=== PATIENT | male | born 1940 | race Caucasian/White ===

== ENCOUNTER 2019-10-15 12:14 | Outpatient (CLI) | payer MEDICARE, OTHER ==
[2019-10-16 12:55] LABS: SARS-CoV-2 MS2 Positive; SARS-CoV-2 N Gene Negative; SARS-CoV-2 S Gene Negative; SARS-CoV-2 orf1ab Negative
== END 2019-10-15 12:15 | disposition home or self-care (01) ==
LOC: LABSCS 12:14
PROVIDERS: ATTEND Internal Medicine
DX: Z01.812 Encounter for preprocedural laboratory examination (principal); Z11.59 Encounter for screening for other viral diseases
CPT/HCPCS: 87635; U0003

== ENCOUNTER 2020-02-09 09:57 | Outpatient (CLI) | payer MEDICARE ==
--- NOTE | 2020-02-09 13:31 | RAD ---
2 view chest: [02/09/2020] Comparison:None available HISTORY: Preoperative patient FINDINGS: There is no pneumothorax or pleural fluid. No focal consolidation or alveolar edema. Heart and mediastinal contours appear grossly unremarkable. IMPRESSION: No focal consolidation or alveolar edema.
[2020-02-09 14:10] LABS: #Monocytes 0.8 10x3/uL (0.0-1.1); #Neutrophils 4.2 10x3/uL (1.5-8.4); %Basophils 0.4 % (0.0-2.0); %Eosinophils 0.5 % (0.0-6.0); %Lymphocytes 8.6 % (18.0-47.0); %Neutrophils 74.8 % (40.0-75.0); Hemoglobin 9.4 g/dL (14.0-18.0); Mean Corpuscular HGB CONC 32.3 G/DL (32.0-36.0); Mean Corpuscular Hemoglobin 30.7 PG (27.0-33.0); Mean Corpuscular Volume 95.1 fl (80.0-100.0); Mean Platelet Volume 8.9 fl (7.4-10.4); Platelet Count 417 10x3/uL (130-400); RBC Distribution Width 21.4 % (11.5-14.5); Red Blood Cell (RBC) Count 3.06 10x6/uL (4.40-5.80); White Blood Cell (WBC) Count 5.6 10x3/uL (4.5-11.0)
[2020-02-09 14:30] LABS: Anion Gap 14 mmol/L (10-20); BUN (Urea Nitrogen) 13 mg/dL (8.4-25.7); Calc. Creatinine Clearance 0 mL/min (70-130); Calcium 8.9 mg/dL (7.8-10.44); Carbon Dioxide 26 mmol/L (23-31); Chloride 101 mmol/L (98-107); Estimated GFR-MDRD Greater than 90; Glucose 178 mg/dL (83-110); Potassium 4.4 mmol/L (3.5-5.1); Sodium 137 mmol/L (136-145)
--- NOTE | 2020-02-09 23:46 | EKG ---
Test Reason : PREOP Blood Pressure : / mmHG Vent. Rate : 083 BPM Atrial Rate : 083 BPM P-R Int : 152 ms QRS Dur : 086 ms QT Int : 386 ms P-R-T Axes : 064 -21 056 degrees QTc Int : 453 ms Normal sinus rhythm Normal ECG Confirmed by Mark Anthony KUO ([id number]) on 02/09/2020 11:46:47 PM Referred By: CHRISTIAN Confirmed By:Mark Anthony KUO
[2020-02-10 12:58] LABS: SARS-CoV-2 MS2 Positive; SARS-CoV-2 N Gene Negative; SARS-CoV-2 S Gene Negative; SARS-CoV-2 by NAA Not Detected (NotDetected); SARS-CoV-2 orf1ab Negative
== END 2020-02-09 09:58 | disposition home or self-care (01) ==
LOC: LABBT 09:57
PROVIDERS: ATTEND Specialist
DX: Z01.818 Encounter for other preprocedural examination (principal); C15.5 Malignant neoplasm of lower third of esophagus; Z20.828 Contact with and (suspected) exposure to other viral communicable diseases
CPT/HCPCS: 71045; 80048; 85025; 93005; U0003; 87635; 93010

== ENCOUNTER 2020-02-12 08:47 | Day surgery (SDC) | payer MEDICARE ==
--- NOTE | 2020-02-11 09:31 | HP ---
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 He has had a feeding jejunostomy placed in [place]. He has been discovered to have a solitary liver met and lymphadenopathy and probably not a candidate for surgical resection. He has completed radiation therapy three weeks ago. I have been asked to see him regarding placement of a MediPort. He has a positive lymphadenopathy on PET scan in November. He had a J-tube placed in December 2019 in [place] along with a left lobe liver biopsy, metastatic adenocarcinoma, and omental biopsy negative. ALLERGIES: NONE. SOCIAL HISTORY: Tobacco, none. Alcohol, none. MEDICATIONS: None routinely. PAST SURGICAL/MEDICAL HISTORY: Noncontributory except for his feeding tube, left hand surgery after an injury, laparoscopy and biopsy, solitary liver mass. REVIEW OF SYSTEMS: Ten-point noncontributory. FAMILY HISTORY: Negative. PHYSICAL EXAMINATION: VITAL SIGNS: 198 pounds, 72 inches, and 28 BMI. 93/66, 72, and 97.6 degrees. HEAD, EARS, EYES, NOSE, AND THROAT: Unremarkable. LUNGS: Clear to auscultation. CARDIAC: Regular rate and rhythm without murmur or gallop. ABDOMEN: Soft and nontender. Feeding tube, left abdomen. EXTREMITIES: Unremarkable. 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 PLAN: Placement of low-profile MediPort, left chest. He understands risks and benefits, consents. Job ID: [id number]
[2020-02-11 13:38] VITALS: BMI 27.1
[2020-02-12] MEDS ORDERED: Acetaminophen 500 MG TAB ONE (09:13)
[2020-02-12] MEDS ORDERED: Ketorolac Tromethamine 30 MG/ML VIAL ONE (09:13)
[2020-02-12] MEDS ORDERED: Fentanyl 100 MCG/2 ML VIAL ONE (10:26)
[2020-02-12] MEDS ORDERED: PROPOFOL 40 ML ONE (10:26)
[2020-02-12] MEDS ORDERED: Midazolam HCl 2 mg/2 ml Vial ONE (10:26)
[2020-02-12] MEDS ORDERED: Lidocaine 2% w/Epinephrine 1:200K 20 ML VIAL ONE (10:27)
[2020-02-12] MEDS ORDERED: Bupivacaine PF 0.5% 30 ML VIAL ONE (10:27)
--- NOTE | 2020-02-12 11:48 | OP ---
DATE OF PROCEDURE: 02/12/2020 PREOPERATIVE DIAGNOSIS: Esophageal cancer, in need of antineoplastic chemotherapy access. POSTOPERATIVE DIAGNOSIS: Esophageal cancer, in need of antineoplastic chemotherapy access. PROCEDURES PERFORMED: Right subclavian vein MediPort, PowerPort, low-profile. Digital x-ray used (fluoroscopy unavailable). ANESTHESIA: TIVA, local 0.25% Marcaine 30 mL mixed with 1% Xylocaine with epinephrine 20 mL. DESCRIPTION OF PROCEDURE: The patient was taken to the operating room, where under intravenous sedation, neck and chest prepared with ChloraPrep and draped in routine fashion. Local anesthetic infiltrated in the skin and subcutaneous tissue about the operative site. Trocar catheter with infraclavicular subclavian approach cannulated, threading the J-wire, removing the trocar, making a skin incision, creating a subcutaneous pocket with blunt and sharp dissection, using cautery for hemostasis. Dilator and Peel-Away sheath placed with J-wire in superior vena cava, dilator and J-wire were removed, catheter placed with Peel-Away sheath. Peel-Away sheath removed. Catheter placed in optimal position, tip in the superior vena cava, verified by digital x-ray. Catheter tailored to length, connected to the MediPort, placed in subcutaneous pocket, secured with 2 interrupted suture of 3-0 Prolene. Subcutaneous tissue was approximated with 3-0 Monocryl, skin with subdermal 4-0 Monocryl. MediPort accessed with a Arguelles needle, aspirated blood, flushed with heparinized saline solution. [place] glue applied. Final digital chest x-ray revealed good line placement. Job ID: [id number]
--- NOTE | 2020-02-12 13:08 | RAD ---
PORTABLE CHEST: Date: 02/12/2020 INDICATION: MediPort placement. COMPARISON: 02/09/2020. FINDINGS/IMPRESSION: A MediPort type catheter has been placed via the right subclavian vein. This line overlies the SVC an d appears in adequate position. Lungs remain clear and unchanged. No acute interval change noted. POS: AH
== END 2020-02-12 11:45 | disposition home or self-care (01) ==
LOC: SDC 08:47
PROVIDERS: ATTEND Specialist
PROC: 0JH60WZ Insertion of Totally Implantable Vascular Access Device into Chest Subcutaneous Tissue and Fascia, Open Approach (ICD-10-PCS; principal; 2020-02-12)
PROC: 02HV33Z Insertion of Infusion Device into Superior Vena Cava, Percutaneous Approach (ICD-10-PCS; 2020-02-12)
PROC: B518ZZA Fluoroscopy of Superior Vena Cava, Guidance (ICD-10-PCS; 2020-02-12)
DX: C15.5 Malignant neoplasm of lower third of esophagus (principal); C78.7 Secondary malignant neoplasm of liver and intrahepatic bile duct; Z79.82 Long term (current) use of aspirin; Z79.84 Long term (current) use of oral hypoglycemic drugs; Z79.899 Other long term (current) drug therapy
CPT/HCPCS: 36561; 71045; C1788; J0690; J1642; J1885; J2250; J2704; J3010; S0020

== ENCOUNTER 2020-03-22 08:08 | Outpatient (CLI) | payer MEDICARE ==
--- NOTE | 2020-03-22 10:49 | PET ---
EXAM: PET/CT HISTORY: Malignant neoplasm of the lower one third of the esophagus TECHNIQUE: PET scanning with CT attenuation correction was performed from the base of the brain to the proximal thighs following the intravenous administration of 12.1 millicuries [id number]. COMPARISON: Prior CT the chest, abdomen and pelvis dated November 17, 2019 and a PET/CT dated November. FINDINGS: Biodistribution:The biodistribution for the exam appears acceptable. Head and neck: There is appropriate background activity within the brain. No hypermetabolic lymphaden opathy or masses identified. Thorax: The prominent circumferential hypermetabolic activity involving the distal one third esophage al mass is near completely resolved. The peak SUV activity involving the distal esophagus is 3.1 were previously it was 11.4. Mild residual thickening is seen involving the distal esophagus. No hyp ermetabolic paraesophageal lymphadenopathy is noted. Abdomen and pelvis: There is expected background activity within the GI and systems. No hypermetab olic mass, lymphadenopathy or ascites is present. No hypermetabolic lymphadenopathy is evident within the paraesophageal or gastrohepatic region previously seen. No hypermetabolic activity is seen involving the small exophytic hyperdense lesion off the anterior aspect of the lower pole of the left kidney. There is a focus of narrowing and hypermetabolic activity involving the hepatic flexure of the colon likely related to peristalsis with superimposed background GI activity measuring a peak activity of 7.39. This was not demonstrated on the prior PET/CT normal comparison CT evaluation is likely artifactual in nature. No hypermetabolic ascites is present. There is a percutaneous jejunostomy tube in place. There is prostate enlargement. Osseous structures and skin: No hypermetabolic skin or osseous lesion is identified. There are bilate ral pars defects at L5 with grade 1 anterolisthesis. IMPRESSION: Abnormal PET/CT 1. The prominent circumferential hypermetabolic soft tissue mass involving the distal one third of th e esophagus is near completely resolved. Mild residual thickening is seen remaining the distal one third of the esophagus. There is only mild hypermetabolic activity involving the distal one third eso phagus. No hypermetabolic lymphadenopathy is evident within the paraesophageal region or within the upper abdomen as previously seen. Continued PET CT follow-up is recommended. 2. Focal area of narrowing involving the hepatic flexure the colon with associated increased metaboli c activity is likely related to an area of peristalsis with the accentuated GI background activity. Would confirm appropriate colon screening in the patient's history as a conservative measure. 3. The indeterminate exophytic hyperdense lesion off the anterior aspect of the lower pole of the lef t kidney remains unchanged in CT appearance without associated hypermetabolic activity. Follow-up ultrasound may be helpful for improved characterization.
== END 2020-03-22 08:09 | disposition home or self-care (01) ==
LOC: PET 08:08
PROVIDERS: ATTEND Internal Medicine Hematology & Oncology
DX: C15.9 Malignant neoplasm of esophagus, unspecified (principal); N28.9 Disorder of kidney and ureter, unspecified
CPT/HCPCS: 78815; A9552

== ENCOUNTER 2020-04-22 08:20 | Day surgery (SDC) | payer MEDICARE ==
[2020-04-22] MEDS ORDERED: Sodium Chloride 0.9% 20 ML ONE (09:19)
[2020-04-22] MEDS ORDERED: Acetaminophen 500 MG TAB PO SCH (09:30)
[2020-04-22] MEDS ORDERED: diphenhydrAMINE 25 MG CAP PO SCH (09:30)
[2020-04-22 14:53] VITALS: BP 135/65; TEMP 97.9
== END 2020-04-22 14:54 | disposition home or self-care (01) ==
LOC: ONC/OP 08:20
PROVIDERS: ATTEND Internal Medicine Hematology & Oncology
PROC: 30233N1 Transfusion of Nonautologous Red Blood Cells into Peripheral Vein, Percutaneous Approach (ICD-10-PCS; principal; 2020-04-22)
DX: D64.9 Anemia, unspecified (principal); D69.6 Thrombocytopenia, unspecified
CPT/HCPCS: 36430; 86850; 86900; 86901; J1642; P9016; Q0163

== ENCOUNTER 2020-04-26 18:46 | Inpatient (IN) | payer MEDICARE ==
[2020-04-26 21:44] VITALS: BMI 24.0
[2020-04-27] MEDS ORDERED: Morphine 2 MG/ML VIAL SLOW IVP SCH (00:45)
[2020-04-27] MEDS ORDERED: Prochlorperazine Maleate 5 MG TAB PO PRN (01:21)
[2020-04-27] MEDS ORDERED: Ondansetron ODT 8 MG TAB PO PRN (01:21)
[2020-04-27] MEDS ORDERED: Acetaminophen 325 MG TAB PO PRN (01:54)
[2020-04-27] MEDS ORDERED: Dextrose 5% in Water 1,000 ML IV PRN (02:00)
[2020-04-27] MEDS ORDERED: Dextrose 50% Abboject 50 ML SYRINGE SLOW IVP PRN (02:00)
[2020-04-27] MEDS ORDERED: HumaLOG 300 UNITS/3 ML VIAL SC PRN ×2 (02:00)
--- NOTE | 2020-04-27 02:07 | PDOC.HHP ---
Hospitalist HPI - History of Present Illness Fall, J tube expulsion History of Present Illness: PCP; Dr. Winchester The patient is a 79/M with PMH significant for esophageal and liver cancer s/p J-tube placement (on chemo) followed by Dr. Vega, [facility], [facility] that presents to the hospital as a transfer from [facility] emergency department via EMS for the above compliant. Apparently, the patient suffered a mechanical fall with subsequent expulsion of his feeding tube. He denies hitting his head or loss of consciousness. He has had his feeding tube replaced multiple times in the past. Also, the patient reports having progressive generalized weakness over the past several days. He denies any abdominal pain, nausea, vomiting, diarrhea. He denies any known sick contacts. No known Covid contacts. No loss of smell or taste. He is currently being treated with chemotherapy by Dr. Vega and recently received a dose of Neulasta. He denies fever, however, he endorses chills. He endorses nonproductive cough, however, denies shortness of breath and wheezing. He was found to have leukocytosis, UTI and mild hypokalemia. He was transferred to our hospital for further treatment. ED Course: T 97.6, BP 96/60, HR 77, RR 18, SPO2 97% room air CXR no acute process X-ray abdomen feeding tube check, tube in place. LA 1.7, WBCs 27.9 K3.0 Medications: Vancomycin and cefepime IVPB 1 L normal saline 40 M EQ's of potassium Morphine and Zofran Hospitalist ROS - Review of Systems Constitutional: reports: chills. denies: fever Eyes: denies: pain Respiratory: reports: cough (Nonproductive). denies: shortness of breath, hemoptysis, sputum Cardiovascular: denies: chest pain, palpitations, edema, light headedness Gastrointestinal: denies: nausea, vomiting, abdominal pain, diarrhea, constipation, melena, hematochezia Genitourinary: denies: dysuria, hematuria All other systems reviewed; all pertinent +/- noted in HPI/Subj - Medication Medications: Active Medications Generic Name Dose Route Start Last Admin Trade Name Freq PRN Reason Stop Dose Admin Morphine Sulfate 2 mg 04/27/20 00:45 04/27/20 00:40 Morphine 2 Mg/Ml Vial SLOW IVP 04/27/20 02:45 2 mg NOW MARTIN Administration Hospitalist History - Past Medical History Cardiac: reports: HTN, Hyperlipidemia Gastrointestinal: reports: GERD Heme/Onc: reports: Cancer (Esophageal and liver cancer) Renal/: reports: Benign prostatic enlarg. Endocrine: reports: Diabetes (Type II) - Past Surgical History Past Surgical History: reports: Other (J-tube replacement) - Family History Other Family History: Noncontributory to this case - Social History Smoking Status: Never smoker Alcohol: reports: None Drugs: reports: none Living Situation: With Family Occupation: Retired Activity level: uses cane/walker - Exam General Appearance: NAD, awake alert. negative: ill appearing Eye: anicteric sclera ENT: normocephalic atraumatic, moist mucosa Neck: supple, no lymphadenopathy Heart: RRR, no murmur, no gallops, no rubs, normal peripheral pulses Respiratory: CTAB, no wheezes, no rales, no ronchi, normal chest expansion, no tachypnea Gastrointestinal: soft, non-tender, non-distended, normal bowel sounds, no guarding, no rigidity Gastrointestinal - other findings: [address] Extremities: no edema Skin: no rashes Neurological: cranial nerve grossly intact, no focal deficits Psychiatric: normal affect, A&O x 3 Hospitalist Results - Radiology Interpretation Chest x-ray Status: report reviewed by me Additional Comment: No acute process. Hospitalist H&P A/P - Problem (1) UTI (urinary tract infection) Status: Acute (2) Leukocytosis Code(s): D72.829 - ELEVATED WHITE BLOOD CELL COUNT, UNSPECIFIED Status: Acute (3) Encounter for feeding tube placement Code(s): Z46.59 - ENCOUNTER FOR FIT/ADJST OF GI APPLIANCE AND DEVICE Status: Acute (4) Hypokalemia Code(s): E87.6 - HYPOKALEMIA Status: Acute (5) Esophageal cancer Status: Chronic (6) DM2 (diabetes mellitus, type 2) Status: Chronic (7) HTN (hypertension) Code(s): I10 - ESSENTIAL (PRIMARY) HYPERTENSION Status: Chronic (8) HLD (hyperlipidemia) Code(s): E78.5 - HYPERLIPIDEMIA, UNSPECIFIED Status: Chronic (9) BPH (benign prostatic hyperplasia) Code(s): N40.0 - BENIGN PROSTATIC HYPERPLASIA WITHOUT LOWER URINRY TRACT SYMP Status: Chronic (10) GERD (gastroesophageal reflux disease) Code(s): K21.9 - GASTRO-ESOPHAGEAL REFLUX DISEASE WITHOUT ESOPHAGITIS Status: Chronic - Plan Plan: Patient with esophageal liver cancer status post J-tube placement presents for mechanical fall and expulsion of J-tube. #UTI UA 1+ bacteria, WBCs, leukocyte esterase WBCs 27.9, LA 1.7 Given vancomycin and cefepime Blood/urine cultures pending #Leukocytosis Potentially multifactorial. WBCs 27.9 Status post Neulasta administration. Plan as per #1. #Encounter for feeding tube placement J-tube replaced with 12 [place] Olson catheter in [facility] ER. Abdominal x-ray confirmed placement was good. Consult GI for PEG tube placement. #Hypokalemia mild, presented K 3.0 Replaced 40 mEQ in [facility] ER Will check Mag and recheck BMP in am #DM2 Takes metformin. Hold metformin. Start moderate ISS. Accu-Cheks every 6. #Esophageal and liver cancer Followed by Dr. Vega. Currently chemotherapy. Status post Neulasta administration. Consult Dr. Vega. SCDs for DVT prophylaxis. No pharmacological DVT prophylaxis. Pepcid for GI prophylaxis. Consult PT. CODE STATUS is full code. Discussed the case with Dr. Magaña, attending physician, who agrees with plan of care.
[2020-04-27] MEDS ORDERED: Vancomycin HCl 1.25 GM in Sodium Chloride 0.9% 250 ML 250 ML IVPB SCH (06:00)
[2020-04-27 06:19] LABS: Anion Gap 12 mmol/L (10-20); BUN (Urea Nitrogen) 11 mg/dL (8.4-25.7); Calc. Creatinine Clearance 103 mL/min (70-130); Calcium 8.6 mg/dL (7.8-10.44); Carbon Dioxide 28 mmol/L (23-31); Chloride 109 mmol/L (98-107); Glucose 94 mg/dL (83-110); Magnesium 1.9 mg/dL (1.6-2.6); Potassium 3.1 mmol/L (3.5-5.1); Sodium 146 mmol/L (136-145)
[2020-04-27 06:31] LABS: Hemoglobin 10.5 g/dL (14.0-18.0); Mean Corpuscular HGB CONC 33.1 g/dL (32.0-36.0); Mean Corpuscular Hemoglobin 32.2 pg (27.0-31.0); Mean Corpuscular Volume 97.4 fL (78.0-98.0); Mean Platelet Volume 8.6 fL (7.4-10.4); Platelet Count 90 thou/uL (130-400); RBC Distribution Width 19.9 % (11.5-14.5); Red Blood Cell (RBC) Count 3.25 mill/uL (4.70-6.10); White Blood Cell (WBC) Count 18.9 thou/uL (4.8-10.8)
[2020-04-27 08:05] LABS: #Lymphocytes 0.8 thou/uL (1.20-3.40); #Monocytes 1.2 thou/uL (0.11-0.59); #Neutrophils 16.9 thou/uL (1.40-6.50); %Eosinophils 0.2 % (0.0-10.0); %Lymphocytes 4.3 % (21.0-51.0); %Monocytes 6.1 % (0.0-10.0); %Neutrophils 89.4 % (42.0-75.0); Anisocytosis MODERATE=16-30 cells (100X) (0-5/hpf); Band 23 % (5-11); Lymphocytes 1 % (21-51); MDiff Complete? YES; Monocytes 6 % (0-10); Neutrophil 69 % (42-75); Platelet Morphology Comment Appears Decreased; Polychromasia SLIGHT = 2-3 cells (100X) (0-2/hpf); Toxic Granulation SLIGHT
[2020-04-27] MEDS ORDERED: LACTOBACILLUS RHAMNOSUS GG PO SCH (09:00)
[2020-04-27] MEDS: Cefepime 1 GM in Sodium Chloride 0.9% 100 ML IVPB SCH ×2 (09:03→20:46)
[2020-04-27] MEDS: Finasteride 5 MG TAB PO SCH (09:07)
[2020-04-27] MEDS: Potassium Bicarbonate/Cit Ac 20 MEQ TAB PO SCH ×2 (09:07→16:28)
[2020-04-27] MEDS: Aspirin 81 mg Enteric Coated Tablet PO SCH (09:07)
[2020-04-27] MEDS: Losartan 25 MG TAB PO SCH (09:08)
[2020-04-27] MEDS ORDERED: Potassium Chloride 20 MEQ TAB PO SCH (10:30)
[2020-04-27] MEDS ORDERED: Potassium Chloride 20 MEQ in Premix Bag 1 BAG IVPB SCH (11:15)
--- NOTE | 2020-04-27 12:46 | CON ---
DATE OF CONSULTATION: 04/27/2020 REASON FOR CONSULTATION: J-tube came out. HISTORY OF PRESENT ILLNESS: Jona Ramos is a 79-year-old man who has been seen by my partner, Dr. Harsh Mancilla. He evaluated him in October for a couple of months of progressive dysphagia to solids. Unfortunately, on 11/05/2019, EGD showed a large near-obstructing bleeding and esophageal mass from 35 to 42 cm. Biopsies came back confirming adenocarcinoma. The patient has been receiving oncology care under the direction of Dr. Vega as well as some physicians at [facility] in [place]. He ended up undergoing a jejunostomy tube placement for feedings in 12/2019. He had been undergoing neoadjuvant chemotherapy and radiation with plan for curative resection, but it appears that he developed evidence of metastatic disease to the liver. At this point, he continues on chemotherapy. He has had some issues with the J-tube being dislodged accidentally over the past few months, but this has always been replaced in the ER. At this time again, he had an accidental fall at home and afterward he found his J-tube was not working, then it came out last night. Upon presentation here to the emergency department, he was found to have a leukocytosis with WBC 27.9 and urinalysis suggesting urinary tract infection. He was admitted for treatment of this as well as overall generalized weakness. He is now getting vancomycin and cefepime. He is feeling okay. A 12-Niue[place] Olson catheter was placed at the jejunostomy site to keep it open. My partner, Dr. Mancilla, had been called from the ER, was unaware the patient was going to be admitted, had actually arranged for him to be seen by Interventional Radiology for replacement of jejunostomy tube later this week. We are consulted to address this issue now. REVIEW OF SYSTEMS: Full review of systems including constitutional; head, eyes, ears, nose, and throat; GI; ; cardiovascular; respiratory; musculoskeletal; neurologic systems is negative except as noted in the HPI. PAST MEDICAL HISTORY: 1. BPH. 2. Diabetes. 3. Hypertension. 4. Hiatal hernia. 5. Esophageal adenocarcinoma, diagnosed in 10/2019, metastatic to liver. 6. Jejunostomy tube placement in 12/2019. ALLERGIES: NO KNOWN DRUG ALLERGIES. HOME MEDICATIONS: 1. Metformin. 2. Flomax. 3. Compazine. 4. Pantoprazole 40 mg daily. 5. Zofran p.r.n. 6. Losartan. 7. Finasteride. 8. Aspirin 81 mg daily. 9. Amitriptyline 25 mg nightly. SOCIAL HISTORY: No tobacco or alcohol use. FAMILY HISTORY: Noncontributory. PHYSICAL EXAMINATION: VITAL SIGNS: Temperature 97.8, pulse 63, blood pressure 124/74, and 95% oxygen saturation on room air. GENERAL: A 79-year-old man appearing chronically ill, but nontoxic, lying in bed comfortably, in no distress. SKIN: He is a bit pale. No jaundice. No rash visible or palpable. EYES: No scleral icterus. Extraocular movements intact. ENT: Mucous membranes moist. No oral lesions. LYMPHATICS: No submandibular or supraclavicular lymphadenopathy. THYROID: Nontender to palpation. HEART: Regular rate and rhythm. LUNGS: Clear to auscultation bilaterally. ABDOMEN: Nondistended. Bowel sounds are present. Left-sided jejunostomy site was inspected. There was a 12-Niuean Olson catheter in place at this time. There is some surrounding mild erythema. No significant discharge or bleeding from this site. EXTREMITIES: No peripheral edema. VESSELS: Radial pulses 2+ bilaterally. NEUROLOGIC: Cranial nerves 2 through 12 intact bilaterally. No focal deficits. LABORATORY STUDIES: WBC 18.9, hemoglobin 10.5, and platelets 90. Sodium 146, potassium 3.1, BUN 11, creatinine 0.67, and glucose 94. ASSESSMENT AND PLAN: 1. Dislodged jejunostomy tube. 2. Esophageal adenocarcinoma, metastatic to the liver, undergoing chemotherapy. I think that given the location of his malignancy that jejunostomy feedings are preferred to gastric feedings going forward. This being the case, there is no role for endoscopy at this time. He does need his jejunostomy tube to be replaced, and this would best be performed through Interventional Radiology. Since the patient is admitted, we will go ahead and obtain inpatient interventional radiology consultation for consideration of jejunostomy tube replacement. 3. Urinary tract infection. Treatment per the primary service. Job ID: [id number]
--- NOTE | 2020-04-27 16:26 | PDOC.HOSPP ---
- Subjective Encounter Date: 04/27/20 Encounter Time: 12:10 Subjective: In bed denies any complaints - Objective Vital Signs & Weight: Vital Signs (12 hours) Temp Pulse Resp BP Pulse Ox 04/27/20 12:00 98.0 F 63 14 135/75 96 04/27/20 11:36 95 04/27/20 08:00 97.8 F 63 18 124/74 95 Weight Admit Weight 177 lb Weight 177 lb I&O: 04/26/20 04/27/20 04/28/20 06:59 06:59 06:59 Output Total 2450 Balance -2450 Result Diagrams: 04/27/20 05:35 04/27/20 05:35 Additional Labs: Accuchecks 04/27/20 04/27/20 11:45 05:25 POC Glucose 85 91 Hospitalist ROS - Review of Systems Cardiovascular: denies: chest pain, palpitations, orthopnea, paroxysmal noc. dyspnea, edema, light headedness, other Gastrointestinal: denies: nausea, vomiting, abdominal pain, diarrhea, constipation, melena, hematochezia, other Genitourinary: denies: dysuria, frequency, incontinence, hematuria, retention, other - Medication Medications: Active Medications Generic Name Dose Route Start Last Admin Trade Name Freq PRN Reason Stop Dose Admin Aspirin 81 mg 04/27/20 09:00 04/27/20 09:07 Aspirin 81 Mg Enteric Coated Tablet PO Not Given DAILY [facility] Finasteride 5 mg 04/27/20 09:00 04/27/20 09:07 Finasteride 5 Mg Tab PO Not Given DAILY [facility] Cefepime HCl 1 gm/ Sodium 100 mls @ 200 mls/hr 04/27/20 08:00 04/27/20 09:03 Chloride IVPB 100 mls 08,1999 [facility] Administration Losartan Potassium 50 mg 04/27/20 09:00 04/27/20 09:08 Losartan 25 Mg Tab PO Not Given DAILY [facility] Pantoprazole Sodium 40 mg 04/27/20 09:00 04/27/20 09:08 Pantoprazole 40 Mg Tab PO Not Given DAILY [facility] Potassium Bicarbonate/Citric Acid 20 meq 04/27/20 08:00 04/27/20 09:07 Potassium Bicarbonate/Cit Ac 20 Meq Tab PO Not Given [facility] - Exam Neck: negative: supple, symmetric, no JVD, no thyromegaly, no lymphadenopathy, no carotid bruit, JVD Heart: negative: RRR, no murmur, no gallops, no rubs, normal peripheral pulses, irregular, diminshed peripheral pulses, murmur present, II/IV, III/IV Respiratory: negative: CTAB, no wheezes, no rales, no ronchi, normal chest expansion, no tachypnea, normal percussion, rales, rhonchi, tachypneic, wheezes Gastrointestinal: negative: soft, non-tender, non-distended, normal bowel sounds, no palpable masses, no hepatomegaly, no splenomegaly, no bruit, no guarding, no rigidity, tender to palpation, distended, diminished bowl sounds, voluntary guarding Hosp A/P - Plan 1) UTI (urinary tract infection) Status: Acute (2) Leukocytosis Code(s): D72.829 - ELEVATED WHITE BLOOD CELL COUNT, UNSPECIFIED Status: Acute (3) Encounter for feeding tube placement Code(s): Z46.59 - ENCOUNTER FOR FIT/ADJST OF GI APPLIANCE AND DEVICE Status: Acute (4) Hypokalemia Code(s): E87.6 - HYPOKALEMIA Status: Acute (5) Esophageal cancer Status: Chronic (6) DM2 (diabetes mellitus, type 2) Status: Chronic (7) HTN (hypertension) Code(s): I10 - ESSENTIAL (PRIMARY) HYPERTENSION Status: Chronic (8) HLD (hyperlipidemia) Code(s): E78.5 - HYPERLIPIDEMIA, UNSPECIFIED Status: Chronic (9) BPH (benign prostatic hyperplasia) Code(s): N40.0 - BENIGN PROSTATIC HYPERPLASIA WITHOUT LOWER URINRY TRACT SYMP Status: Chronic (10) GERD (gastroesophageal reflux disease) Code(s): K21.9 - GASTRO-ESOPHAGEAL REFLUX DISEASE WITHOUT ESOPHAGITIS Status: Chronic - Plan Plan: Patient with esophageal liver cancer status post J-tube placement presents for mechanical fall and expulsion of J-tube. We will continue antibiotics for UTI. Culture has been sent. Patient has a Olson catheter which was placed in the ER due to urinary retention. Patient states that he follows up with urology as an outpatient and in the past has had catheter in for couple weeks. Patient states that he does not want his catheter to be removed at this point. I believe his leukocytosis is most likely se condary to the Neulasta. I will stop the vancomycin and cefepime and start him on ceftriaxone. GI will see him for his PEG tube. Patient has been evaluated by physical therapy. He usually uses a cane at home however he may need a walker. Follows up with oncology for chemotherapy
--- NOTE | 2020-04-27 18:54 | CON ---
DATE OF CONSULTATION: REASON FOR CONSULT: Esophageal cancer. HISTORY OF PRESENT ILLNESS: Mr. Ramos is a 79-year-old gentleman who had stage IV esophageal adenocarcinoma. He underwent concurrent chemoradiation, was to have surgery, but then found metastatic liver lesion. He has been on FOLFOX chemotherapy. He has had a J-tube in place. He has had trouble with the J-tube over last several weeks with dislodgement and gone to the ER for replacement. He was seen on Saturday in our clinic and received cycle 6 of FOLFOX. His white count at that time was 18. It has been slightly elevated over the last several cycles with the last one being 12.8. He presented to the emergency room last night after accidental J-tube displacement. He was noted to have a urinary tract infection. He was admitted for treatment and new J-tube placement. He has been on antibiotics and received IV potassium. He was seen at bedside with his son present. Denies any complaints at this time. PAST MEDICAL HISTORY: 1. Metastatic esophageal adenocarcinoma, on chemotherapy. 2. Diabetes mellitus 2. PAST SURGICAL HISTORY: 1. MediPort placement. 2. J-tube placement. ALLERGIES: NO KNOWN DRUG ALLERGIES. HOME MEDICATIONS: 1. Aspirin. 2. Compazine. 3. Losartan. 4. Metformin. 5. Zofran. 6. Protonix. 7. Flomax. FAMILY HISTORY: Noncontributory. SOCIAL HISTORY: , has 2 children. Former smoker. No alcohol or illicit drug use. REVIEW OF SYSTEMS: 12-point review of systems is negative except for noted in HPI. PHYSICAL EXAMINATION: VITAL SIGNS: Temperature 98.0, pulse is 63, respiratory rate 14, blood pressure is 135/75. He is 96% on room air. GENERAL: Well-developed, well-nourished male, in no acute distress. HEENT: Normocephalic, atraumatic. Pupils are equal and reactive to light. CV: Regular rate and rhythm. LUNGS: Clear. ABDOMEN: Soft. Bowel sounds are positive. EXTREMITIES: No clubbing or cyanosis. SKIN: No rash. HEMATOLOGICAL: No petechiae or purpura. NEUROLOGICAL: Nonfocal. PERTINENT LABORATORY DATA AND X-RAYS: WBCs are 18.9, hemoglobin 10.5, hematocrit 31.6, platelet count is 90,000, 89% neutrophils, 23% bands, 4% lymphocytes. Sodium 146, potassium 3.1, chloride 109, CO2 is 28, BUN is 11, creatinine 0.67, calcium 8.6, bilirubin 1.1, AST is 115, ALT 68, alkaline phosphatase is 143. Serum total protein is 5.6, albumin 3, globulin 2.6. Urine shows 1+ bacteria. ASSESSMENT: 1. Metastatic esophageal cancer, on chemotherapy. 2. J-tube displacement. 3. Urinary tract infection. DISCUSSION: The patient has been admitted and on IV hydration and antibiotics. His potassium has been repleted. He was on 48-hour continuous infusion, which has been discontinued. His MediPort has been flushed, but remains accessed. He is due for Cervalis tomorrow. His white count has been mildly elevated over the last several weeks, possibly made worse with steroids received with treatment and secondary to urinary tract infection. The patient is to have his J-tube replaced tomorrow and then can be discharged when okay with [facility]. He will follow up in our clinic. Thank you for the consult. Job ID: [id number]
[2020-04-27] MEDS ORDERED: Vancomycin 1 GM in Premix Bag 1 BAG IVPB SCH (19:00)
[2020-04-27] MEDS ORDERED: Amitriptyline HCl 25 MG TAB PO SCH (21:00)
[2020-04-27] MEDS ORDERED: Tamsulosin HCl 0.4 MG CAP PO SCH (21:00)
[2020-04-28 05:37] LABS: INR-International Normal Ratio 1.2; PTT 30.3 sec (22.9-36.1); Prothrombin Time 15.4 sec (12.0-14.7)
[2020-04-28] MEDS: Potassium Bicarbonate/Cit Ac 20 MEQ TAB PO SCH ×2 (08:06→17:18)
[2020-04-28] MEDS: Finasteride 5 MG TAB PO SCH (08:06)
[2020-04-28] MEDS: Losartan 25 MG TAB PO SCH (08:06)
[2020-04-28] MEDS: Lactinex Tablet PO SCH (08:06)
[2020-04-28] MEDS: Aspirin 81 mg Enteric Coated Tablet PO SCH (08:06)
[2020-04-28] MEDS: Amitriptyline HCl 25 MG TAB PO SCH (08:06)
[2020-04-28] MEDS: Tamsulosin HCl 0.4 MG CAP PO SCH (08:07)
[2020-04-28 08:45] LABS: SARS-CoV-2 PCR by NAA Not Detected (NotDetected)
[2020-04-28] MEDS: Cefepime 1 GM in Sodium Chloride 0.9% 100 ML IVPB SCH ×2 (09:52→20:58)
--- NOTE | 2020-04-28 12:38 | PDOC.HOSPP ---
- Subjective Encounter Date: 04/28/20 Subjective: No new events overnight. The patient is confused. - Objective Vital Signs & Weight: Vital Signs (12 hours) Temp Pulse Resp BP Pulse Ox 04/28/20 10:40 97.5 F L 71 16 128/73 96 04/28/20 07:07 97.5 F L 56 L 16 122/63 97 04/28/20 03:46 97.5 F L 60 14 133/68 97 Weight Admit Weight 177 lb Weight 177 lb I&O: 04/27/20 04/28/20 04/29/20 06:59 06:59 06:59 Intake Total 1280 Output Total 2450 1800 Balance -2450 -520 Result Diagrams: 04/27/20 05:35 04/27/20 05:35 Additional Labs: Accuchecks 04/28/20 04/28/20 04/27/20 10:42 05:48 23:58 POC Glucose 92 97 106 H 04/27/20 18:16 POC Glucose 107 H Hospitalist ROS - Medication Medications: Active Medications Generic Name Dose Route Start Last Admin Trade Name Freq PRN Reason Stop Dose Admin Acidophilus 1 tab 04/28/20 09:00 04/28/20 08:06 Lactinex Tablet PO Not Given DAILY MARTIN Amitriptyline HCl 25 mg 04/28/20 09:00 04/28/20 08:06 Amitriptyline Hcl 25 Mg Tab PO Not Given QAM MARTIN Aspirin 81 mg 04/27/20 09:00 04/28/20 08:06 Aspirin 81 Mg Enteric Coated Tablet PO Not Given DAILY MARTIN Finasteride 5 mg 04/27/20 09:00 04/28/20 08:06 Finasteride 5 Mg Tab PO Not Given DAILY MARTIN Cefepime HCl 1 gm/ Sodium 100 mls @ 200 mls/hr 04/27/20 08:00 04/28/20 09:52 Chloride IVPB 100 mls MARTIN Administration Losartan Potassium 50 mg 04/27/20 09:00 04/28/20 08:06 Losartan 25 Mg Tab PO Not Given DAILY MARTIN Pantoprazole Sodium 40 mg 04/27/20 09:00 04/28/20 08:07 Pantoprazole 40 Mg Tab PO Not Given DAILY MARTIN Potassium Bicarbonate/Citric Acid 20 meq 04/27/20 08:00 04/28/20 08:06 Potassium Bicarbonate/Cit Ac 20 Meq Tab PO Not Given BID-WM MARTIN Tamsulosin HCl 0.8 mg 04/28/20 09:00 04/28/20 08:07 Tamsulosin Hcl 0.4 Mg Cap PO Not Given QAM MARTIN - Exam ENT: normocephalic atraumatic Neck: supple, no JVD Respiratory: normal chest expansion, no tachypnea Extremities: no cyanosis, no clubbing Hosp A/P (1) Sepsis Code(s): A41.9 - SEPSIS, UNSPECIFIED ORGANISM Status: Acute (2) Encounter for feeding tube placement Code(s): Z46.59 - ENCOUNTER FOR FIT/ADJST OF GI APPLIANCE AND DEVICE Status: Acute (3) UTI (urinary tract infection) Status: Acute (4) BPH (benign prostatic hyperplasia) Code(s): N40.0 - BENIGN PROSTATIC HYPERPLASIA WITHOUT LOWER URINRY TRACT SYMP Status: Chronic (5) DM2 (diabetes mellitus, type 2) Status: Chronic (6) Esophageal cancer Status: Chronic - Plan Sepsis secondary to complicated UTI. The patient has a chronic Olson catheter. Urine culture is pending. Continue IV cefepime. Repeat CBC in the morning. J-tube will be replaced today.
--- NOTE | 2020-04-28 13:35 | SPC ---
Jejunostomy tube change fluoroscopic guided HISTORY: Jejunostomy feeding tube inadvertently removed. FINDINGS: The external portion of the temporary Olson catheter that was used to replace the left abdo russell jejunostomy feeding catheter was prepped and draped in usual sterile fashion. Small amount of contrast was injected to confirm good location. A 0.035 Glidewire was carefully passed through the catheter, out a sidehole, and into the jejunum to hold position. A new 12 [place] jejunostomy feeding catheter was then carefully placed over the guidewire and into th e duodenum. Small amount of contrast injected to confirm good position. A total of 3 cc sterile water was carefully injected to fill the retention balloon. Balloon was carefully snugged against the jejunal wall. Patient tolerated the procedure well and was returned in unchanged condition. IMPRESSION : Technically successful fluoroscopic guided jejunostomy feeding catheter exchange.
[2020-04-28] MEDS ORDERED: Iopamidol 300 61% 50 ML VIAL FS ONE (14:48)
[2020-04-29 05:54] LABS: #Eosinphils 0.1 thou/uL (0.0-0.7); #Lymphocytes 0.4 thou/uL (1.20-3.40); #Monocytes 0.1 thou/uL (0.11-0.59); %Basophils 0.1 % (0.0-1.0); %Eosinophils 1.1 % (0.0-10.0); %Lymphocytes 9.2 % (21.0-51.0); %Monocytes 2.8 % (0.0-10.0); %Neutrophils 86.8 % (42.0-75.0); Hemoglobin 10.8 g/dL (14.0-18.0); Mean Corpuscular HGB CONC 32.6 g/dL (32.0-36.0); Mean Corpuscular Hemoglobin 31.9 pg (27.0-31.0); Mean Corpuscular Volume 97.9 fL (78.0-98.0); Mean Platelet Volume 8.5 fL (7.4-10.4); Platelet Count 86 thou/uL (130-400); RBC Distribution Width 19.1 % (11.5-14.5); Red Blood Cell (RBC) Count 3.38 mill/uL (4.70-6.10); White Blood Cell (WBC) Count 4.6 thou/uL (4.8-10.8)
[2020-04-29 06:12] LABS: Anion Gap 13 mmol/L (10-20); BUN (Urea Nitrogen) 10 mg/dL (8.4-25.7); Calc. Creatinine Clearance 119 mL/min (70-130); Calcium 8.4 mg/dL (7.8-10.44); Carbon Dioxide 30 mmol/L (23-31); Chloride 102 mmol/L (98-107); Glucose 89 mg/dL (83-110); Sodium 142 mmol/L (136-145)
[2020-04-29 06:18] LABS: Potassium 2.7 mmol/L (3.5-5.1)
[2020-04-29] MEDS ORDERED: Electrolyte Replacement Protocol 1 EACH FS PRN (07:01)
[2020-04-29] MEDS ORDERED: Magnesium 2 GM/50 ML 2 GM in Premix Bag 1 BAG IVPB SCH (08:00)
[2020-04-29] MEDS: Cefepime 1 GM in Sodium Chloride 0.9% 100 ML IVPB SCH (08:29)
[2020-04-29] MEDS: Potassium Bicarbonate/Cit Ac 20 MEQ TAB PO SCH ×2 (08:33→16:05)
[2020-04-29] MEDS: Tamsulosin HCl 0.4 MG CAP PO SCH (08:33)
[2020-04-29] MEDS: Finasteride 5 MG TAB PO SCH (08:33)
[2020-04-29] MEDS: Lactinex Tablet PO SCH (08:33)
[2020-04-29] MEDS: Amitriptyline HCl 25 MG TAB PO SCH (08:33)
[2020-04-29] MEDS: Potassium Chloride 20 MEQ TAB PO SCH ×4 (08:33→16:05)
[2020-04-29] MEDS: Losartan 25 MG TAB PO SCH (08:33)
[2020-04-29] MEDS: Aspirin 81 mg Enteric Coated Tablet PO SCH (08:33)
--- NOTE | 2020-04-29 12:47 | PDOC.DS.DS ---
Provider - Provider Date of Admission: 04/27/20 02:33 Date of Discharge: 04/29/20 Admitting Provider: Chaim Meyers MD Primary Care Physician: Won Winchester MD Course - Hospital Course Hospital Course: The patient is a 79-year-old male with past medical history of esophageal and liver cancer status post J-tube, BPH, and diabetes mellitus who was admitted to the hospital after a fall at home leading to expulsion of his feeding tube. Initial work-up revealed presence of UTI and leukocytosis suggesting possibility of sepsis. He was started on IV cefepime. His J-tube was replaced by radiology. The patient tolerated his feeding well. Urine culture did not show any growth. We will continue management with level Floxin at home to complete 7 days of therapy. His sepsis resolved prior to discharge. Resuscitation Status: 04/27/20 01:54 Resuscitation Status Routine Co-Sign Provider: Resuscitation Status: FULL: Full Resuscitation Discussed with: patient - Labs Lab Results: 04/29/20 04:47 04/29/20 04:47 Abnormal Lab Results - Last 48 hrs 04/28/20 04:56: PT 15.4 H 04/29/20 04:47: Potassium 2.7 L*, Creatinine 0.58 L 04/29/20 04:47: WBC 4.6 L, RBC 3.38 L, Hgb 10.8 L, Hct 33.1 L, MCH 31.9 H, RDW 19.1 H, Plt Count 86 L, Neutrophils % 86.8 H, Lymphocytes % 9.2 L, Lymphocytes # 0.4 L, Monocytes # 0.1 L Microbiology - Entire Visit 04/27/20 10:37 Urine clean catch Urine Culture - Final NO GROWTH AT 48 HOURS - Physical Exam Vitals: Vital Signs (12 hours) Temp Pulse Resp BP Pulse Ox 04/29/20 11:23 97.5 F L 61 18 125/71 94 L 04/29/20 08:33 95 04/29/20 08:03 97.5 F L 73 18 117/67 95 04/29/20 03:06 97.7 F 82 16 124/73 98 Weight Admit Weight 177 lb Weight 177 lb Physical Exam: The patient was seen and examined on the day of discharge. Problem - Problem (1) Sepsis Code(s): A41.9 - SEPSIS, UNSPECIFIED ORGANISM Status: Acute (2) Encounter for feeding tube placement Code(s): Z46.59 - ENCOUNTER FOR FIT/ADJST OF GI APPLIANCE AND DEVICE Status: Acute (3) UTI (urinary tract infection) Status: Acute (4) BPH (benign prostatic hyperplasia) Code(s): N40.0 - BENIGN PROSTATIC HYPERPLASIA WITHOUT LOWER URINRY TRACT SYMP Status: Chronic (5) DM2 (diabetes mellitus, type 2) Status: Chronic (6) Esophageal cancer Status: Chronic Plan - Discharge Medications Prescriptions: Levofloxacin 500 mg PO DAILY #5 tablet Home Medications: Medication Instructions Recorded Confirmed Type Aspirin [Aspirin EC] 81 mg PO DAILY 02/11/20 04/26/20 History Finasteride 5 mg PO DAILY 02/11/20 04/26/20 History Losartan Potassium 50 mg PO DAILY 02/11/20 04/26/20 History Pantoprazole [Protonix] 40 mg PO DAILY 02/11/20 04/26/20 History Tamsulosin HCl 0.8 mg PO HS 02/11/20 04/26/20 History metFORMIN HCl [Metformin HCl] 1,000 mg PO BID 02/11/20 04/26/20 History Amitriptyline HCl 25 mg PO HS 04/26/20 04/26/20 History Lactobacillus Rhamnosus GG 1 cap PO DAILY 04/26/20 04/26/20 History [Culturelle] Ondansetron [Zofran ODT] 8 mg PO TID PRN 04/26/20 04/26/20 History Potassium Chloride [Klor-Con] 20 meq PO BID 04/26/20 04/26/20 History Prochlorperazine Maleate 10 mg PO Q6HR PRN 04/26/20 04/26/20 History [Compazine] Levofloxacin 500 mg PO DAILY #5 tablet 04/29/20 Rx Allergies: No Known Allergies Allergy (Verified 02/11/20 13:38) - Follow up Plan Referrals: [facility] [Outside] Won Winchester MD [Primary Care Provider] - Disposition: HOME Quality - Care Measures CORE MEASURES:: N/A
[2020-04-29 16:47] VITALS: BP 115/69; TEMP 97.6
--- NOTE | 2020-05-02 21:46 | PQF ---
CLINICAL DOCUMENTATION CLARIFICATION FORM: Dear : Carmen Villa MD Date / Time: 05/02/20202140 Please exercise your independent, professional judgment in responding to the clarification form. Clinical indicators are provided on the bottom of this form for your review PLEASE SEND THIS TO THE DISCHARGING PHYSICIAN Please check appropriate box(es): [ ] UTI due to Chronic Chong catheter [ ] UTI not due to Chronic Chong catheter [ ] Other diagnosis [ ] Unable to determine In addition, please specify: Present on Admission (POA): [ ] Yes [ ] No [ ] Unable to determine Physician Signature: Date/Time: For continuity of documentation, please document condition throughout progress notes and discharge summary. Thank YoU To be completed by CDI/Coding staff for physician review: Present Clinical Indicators - Signs / Symptoms / Labs Results and Location in Medical Record [ x] Sepsis secondary to complicated UTI PN, 04/28 Gareth Pop MD [ x] Found to have leukocytosis, UTI, UA 1+bacteria, WBCs, leukocyte esterase, WBC: 27.98 LA 1.7 H&P, 04/27, Fatoumata Pinto PERINATAL INSTRUCTOR [ x ] Urine culture: Final No growth at 48hrs Microbiology report, 04/27 [ x] Urinary retention PN, 04/27, Carmen villa MD, Present Risk Factors Results and Location in Medical Record [x ] Chronic chong catheter PN, 04/28 Gareth Pop MD [ x] BPH PN, 04/28 Gareth Pop MD Present Treatments Results and Location in Medical Record [x ] Vancomycin.IV MAR, 04/27 [ ] [ ] CDS/Sawdust Drier Signature: Yumi Young Phone #: Date / Time: 05/02/20202140 This is a permanent part of the Medical Record [facility]
--- NOTE | 2020-05-11 00:49 | PQF ---
CLINICAL DOCUMENTATION CLARIFICATION FORM: Dear : Kiesha Servin, MARINA Date / Time: 05/11/2020 Please exercise your independent, professional judgment in responding to the clarification form. Clinical indicators are provided on the bottom of this form for your review Please check appropriate box(es): [ > ] UTI due to Chronic Chong catheter [ ] UTI not due to Chronic Chong catheter [ ] Other diagnosis [ ] Unable to determine In addition, please specify: Present on Admission (POA): [> ] Yes [ ] No [ ] Unable to determine Physician Signature: Date/Time: For continuity of documentation, please document condition throughout progress notes and discharge summary. Thank You. To be completed by CDI/Coding staff for physician review: Present Clinical Indicators - Signs / Symptoms / Labs Results and Location in Medical Record [ x] Sepsis secondary to complicated UTI PN, 04/28 Gareth Pop MD [ x] Found to have leukocytosis, UTI, UA 1+bacteria, WBCs, leukocyte esterase, WBC: 27.98 LA 1.7 H&P, 04/27, Fatoumata Pinto CLOTH B[employer]ING [employer] BACK TENDER [ x ] Urine culture: Final No growth at 48hrs Microbiology report, 04/27 [ x] Urinary retention PN, 04/27, Carmen putnam MD, Present Risk Factors Results and Location in Medical Record [x ] Chronic chong catheter PN, 04/28 Gareth Pop MD [ x] BPH PN, 04/28 Gareth Pop MD Present Treatments Results and Location in Medical Record [x ] Vancomycin.IV MAR, 04/27, [ ] [ ] CDS/Industrial Maintenance Manager Signature: Phone #: Date/Time: _05/11/2020 This is a permanent part of the [facility] Record [facility]
== END 2020-04-29 17:45 | disposition home or self-care (01) | DRG 393 ==
LOC: SURG B 18:46 → OBSVTOIN 04-27 02:33
PROVIDERS: ADMIT Internal Medicine; ATTEND Internal Medicine
PROC: 0D20XUZ Change Feeding Device in Upper Intestinal Tract, External Approach (ICD-10-PCS; principal; 2020-04-28)
DX: K94.23 Gastrostomy malfunction (principal); A41.9 Sepsis, unspecified organism; T83.518A Infection and inflammatory reaction due to other urinary catheter, initial encounter; N39.0 Urinary tract infection, site not specified; C15.9 Malignant neoplasm of esophagus, unspecified; C78.7 Secondary malignant neoplasm of liver and intrahepatic bile duct; N40.0 Benign prostatic hyperplasia without lower urinary tract symptoms; Z20.822 Contact with and (suspected) exposure to COVID-19; E11.9 Type 2 diabetes mellitus without complications; K21.9 Gastro-esophageal reflux disease without esophagitis; E87.6 Hypokalemia; I10 Essential (primary) hypertension; K44.9 Diaphragmatic hernia without obstruction or gangrene; Y83.8 Other surgical procedures as the cause of abnormal reaction of the patient, or of later complication, without mention of misadventure at the time of the procedure; E78.5 Hyperlipidemia, unspecified; W18.30XA Fall on same level, unspecified, initial encounter; Y93.9 Activity, unspecified
CPT/HCPCS: 36415; 36416; 43762; 49451; 71045; 74018; 80048; 80053; 81003; 81015; 82248; 83605; 83615; 83690; 83735; 84100; 84550; 85025; 85610; 85730; 87040; 87086; 87635; 96365; 96367; 96374; 96375; G0378; J0692; J1642; J2270; J2405; J3370; J3475; J3480; J3490; J7050; Q9967; U0003; U0005

== ENCOUNTER 2020-06-01 10:04 | Inpatient (IN) | payer MEDICARE ==
[2020-06-01 10:50] LABS: Hemoglobin 9.1 g/dL (14.0-18.0); Mean Corpuscular HGB CONC 33.3 g/dL (32.0-36.0); Mean Platelet Volume 8.9 fL (7.4-10.4); Platelet Count 71 thou/uL (130-400); RBC Distribution Width 20.2 % (11.5-14.5); Red Blood Cell (RBC) Count 2.69 mill/uL (4.70-6.10); White Blood Cell (WBC) Count 10.2 thou/uL (4.8-10.8)
[2020-06-01 11:11] LABS: ALT (SGPT) 19 U/L (8-55); AST (SGOT) 39 U/L (5-34); Albumin 2.9 g/dL (3.4-4.8); Alkaline Phosphatase 132 U/L (40-110); Anion Gap 15 mmol/L (10-20); BUN (Urea Nitrogen) 20 mg/dL (8.4-25.7); Bilirubin, Total 0.8 mg/dL (0.2-1.2); Calc. Creatinine Clearance 0 mL/min (70-130); Calcium 8.7 mg/dL (7.8-10.44); Carbon Dioxide 26 mmol/L (23-31); Chloride 100 mmol/L (98-107); Glucose 139 mg/dL (83-110); Magnesium 1.8 mg/dL (1.6-2.6); Potassium 3.1 mmol/L (3.5-5.1); Protein, Total 5.9 g/dL (5.8-8.1); Sodium 138 mmol/L (136-145)
[2020-06-01 11:12] LABS: Anisocytosis MODERATE=16-30 cells (100X) (0-5/hpf); Band 30 % (5-11); Lymphocytes 3 % (21-51); MDiff Complete? YES; Macrocytosis SLIGHT = 6-15 cells (100X) (0-5/hpf); Monocytes 2 % (0-10); Neutrophil 65 % (42-75); Platelet Morphology Comment Appears Decreased; Polychromasia MODERATE = 3-4 cells (100X) (0-2/hpf)
[2020-06-01] MEDS ORDERED: Magnesium 2 GM/50 ML BAG (IN WATER) ONE (12:00)
[2020-06-01] MEDS ORDERED: Potassium Chloride 20 MEQ TAB PO SCH ×2 (12:15→17:00)
[2020-06-01] MEDS ORDERED: Acetaminophen 325 MG TAB PO PRN (13:18)
[2020-06-01] MEDS ORDERED: Ondansetron PF 4 MG/2 ML Vial IVP PRN (13:18)
[2020-06-01] MEDS ORDERED: HumaLOG 300 UNITS/3 ML VIAL SC PRN (13:21)
[2020-06-01] MEDS ORDERED: Dextrose 5% in Water 1,000 ML IV PRN (13:21)
[2020-06-01] MEDS ORDERED: Dextrose 50% Abboject 50 ML SYRINGE SLOW IVP PRN (13:21)
[2020-06-01 14:16] LABS: Bilirubin Negative (Negative); Blood, Urine 1+ (Negative); Clarity Clear (Clear); Glucose, Urine (Dipstick) Normal (Negative); Ketone, Urine Negative (Negative); Leukocyte 250 Leu/uL (Negative); Nitrite Negative (Negative); Protein, Urine (Dipstick) 20 mg/dL (Neg-Trace); Specific Gravity, Urine 1.008 (1.002-1.036); Squamous Epithelial 0-3 HPF (0-3); Urobilinogen Normal mg/dL (Less than 2); WBC/HPF 21-50 HPF (0-3); pH, Urine 6.5 (5.0-9.0)
[2020-06-01 14:29] LABS: Bacteria/HPF 1+ HPF (None Seen)
[2020-06-01 14:30] LABS: Yeast-Budding 1+ HPF (None Seen)
[2020-06-01] MEDS: Sodium Chloride 0.9% 1,000 ML IV SCH ×2 (20:25→23:03)
[2020-06-02 04:34] LABS: #Lymphocytes 0.5 thou/uL (1.20-3.40); #Monocytes 0.1 thou/uL (0.11-0.59); #Neutrophils 4.7 thou/uL (1.40-6.50); %Eosinophils 0.6 % (0.0-10.0); %Lymphocytes 9.6 % (21.0-51.0); %Monocytes 2.5 % (0.0-10.0); %Neutrophils 87.3 % (42.0-75.0); Hemoglobin 7.9 g/dL (14.0-18.0); Mean Corpuscular HGB CONC 33.6 g/dL (32.0-36.0); Mean Corpuscular Hemoglobin 34.3 pg (27.0-31.0); Mean Platelet Volume 8.9 fL (7.4-10.4); Platelet Count 54 thou/uL (130-400); RBC Distribution Width 20.2 % (11.5-14.5); Red Blood Cell (RBC) Count 2.29 mill/uL (4.70-6.10); White Blood Cell (WBC) Count 5.4 thou/uL (4.8-10.8)
[2020-06-02 05:04] LABS: Anion Gap 9 mmol/L (10-20); BUN (Urea Nitrogen) 15 mg/dL (8.4-25.7); Calc. Creatinine Clearance 114 mL/min (70-130); Carbon Dioxide 28 mmol/L (23-31); Chloride 108 mmol/L (98-107); Glucose 89 mg/dL (83-110); Potassium 3.2 mmol/L (3.5-5.1); Sodium 142 mmol/L (136-145)
[2020-06-02] MEDS ORDERED: FLU VACC QS2020-21(65YR UP)/PF 240 MCG/0.7 ML SYRINGE IM ONE (09:00)
[2020-06-02] MEDS: Sodium Chloride 0.9% 1,000 ML IV SCH ×2 (09:47→21:22)
[2020-06-02 12:36] LABS: Free T4 (Free Thyroxine) 0.9 ng/dL (0.70-1.48); Thyroid Stimulating Hormone 0.4832 uIU/mL (0.35-4.94)
[2020-06-02] MEDS: cefTRIAXone\\ROCEPHIN 1 GM in Sodium Chloride 0.9% 100 ML IVPB SCH (15:29)
[2020-06-02] MEDS: Tamsulosin HCl 0.4 MG CAP PO SCH (21:16)
[2020-06-02] MEDS: Potassium Bicarbonate/Cit Ac 20 MEQ TAB PO SCH (21:17)
[2020-06-03 05:15] LABS: SARS-CoV-2 PCR by NAA Not Detected (NotDetected)
[2020-06-03 05:43] LABS: Anion Gap 12 mmol/L (10-20); BUN (Urea Nitrogen) 11 mg/dL (8.4-25.7); Calc. Creatinine Clearance 108 mL/min (70-130); Calcium 7.7 mg/dL (7.8-10.44); Carbon Dioxide 26 mmol/L (23-31); Chloride 109 mmol/L (98-107); Glucose 144 mg/dL (83-110); Magnesium 1.7 mg/dL (1.6-2.6); Potassium 3.2 mmol/L (3.5-5.1); Sodium 144 mmol/L (136-145)
[2020-06-03] MEDS: Sodium Chloride 0.9% 1,000 ML IV SCH (05:54)
[2020-06-03 05:58] LABS: #Lymphocytes 0.3 thou/uL (1.20-3.40); #Monocytes 0.1 thou/uL (0.11-0.59); #Neutrophils 3.4 thou/uL (1.40-6.50); %Eosinophils 0.6 % (0.0-10.0); %Lymphocytes 8.2 % (21.0-51.0); %Monocytes 3.2 % (0.0-10.0); %Neutrophils 87.9 % (42.0-75.0); Hemoglobin 7.7 g/dL (14.0-18.0); Mean Corpuscular HGB CONC 34.3 g/dL (32.0-36.0); Mean Corpuscular Hemoglobin 34.5 pg (27.0-31.0); Mean Platelet Volume 9.5 fL (7.4-10.4); Platelet Count 44 thou/uL (130-400); Platelet Morphology Comment Appears Decreased; RBC Distribution Width 19.8 % (11.5-14.5); Red Blood Cell (RBC) Count 2.22 mill/uL (4.70-6.10); White Blood Cell (WBC) Count 3.9 thou/uL (4.8-10.8)
[2020-06-03] MEDS ORDERED: HumaLOG 300 UNITS/3 ML VIAL SC PRN ×2 (08:28)
[2020-06-03] MEDS ORDERED: Sodium Chloride 0.65% Nasal 44 ML BOT EA NARE PRN (08:31)
[2020-06-03] MEDS ORDERED: Senokot S 8.6-50 MG TAB PO PRN (08:31)
[2020-06-03] MEDS ORDERED: HYDROcodone/Acetaminophen 5/325 mg Tablet PO PRN (08:31)
[2020-06-03] MEDS ORDERED: Zolpidem Tartrate 5 MG TAB PO PRN (08:31)
[2020-06-03] MEDS ORDERED: Calcium Carbonate 500 MG ChewTAB PO PRN (08:31)
[2020-06-03] MEDS ORDERED: hydrALAZINE 20 MG/ML VIAL SLOW IVP PRN (08:31)
[2020-06-03] MEDS ORDERED: GUAIFENESIN SF SOLN 200 MG/10 ML UDCUP PO PRN (08:31)
[2020-06-03] MEDS ORDERED: Loperamide HCl 2 MG CAP PO PRN (08:31)
[2020-06-03] MEDS ORDERED: Cepastat Lozenges 1 LOZ PO PRN (08:31)
[2020-06-03] MEDS ORDERED: Bisacodyl 5 MG TAB PO PRN (08:31)
[2020-06-03] MEDS ORDERED: Loratadine 10 MG TAB PO PRN (08:31)
[2020-06-03] MEDS ORDERED: Ondansetron ODT 4 MG TAB PO PRN (08:31)
[2020-06-03] MEDS ORDERED: Magnesium 2 GM/50 ML 2 GM in Premix Bag 1 BAG IVPB SCH (09:00)
[2020-06-03] MEDS: Aspirin 81 mg Enteric Coated Tablet PO SCH (09:07)
[2020-06-03] MEDS: Potassium Bicarbonate/Cit Ac 20 MEQ TAB PO SCH ×2 (09:07→20:34)
[2020-06-03] MEDS: Folic Acid 1 MG TAB PO SCH (09:08)
[2020-06-03] MEDS: Finasteride 5 MG TAB PO SCH (09:08)
[2020-06-03] MEDS: Multivitamin W/ Minerals 1 TAB PO SCH (09:08)
[2020-06-03] MEDS: Cyanocobalamin (Vitamin B-12) 1,000 MCG TAB PO SCH (09:08)
[2020-06-03] MEDS: 1/2 NS w/KCL 20 mEq 1,000 ML IV SCH ×2 (11:32→17:41)
[2020-06-03] MEDS: cefTRIAXone\\ROCEPHIN 1 GM in Sodium Chloride 0.9% 100 ML IVPB SCH (17:41)
[2020-06-03] MEDS: Lactinex Tablet PO SCH (17:41)
[2020-06-03] MEDS: Tamsulosin HCl 0.4 MG CAP PO SCH (20:34)
[2020-06-04 06:07] LABS: ALT (SGPT) 13 U/L (8-55); AST (SGOT) 28 U/L (5-34); Albumin 2.5 g/dL (3.4-4.8); Alkaline Phosphatase 83 U/L (40-110); Anion Gap 11 mmol/L (10-20); BUN (Urea Nitrogen) 8 mg/dL (8.4-25.7); Bilirubin, Total 0.8 mg/dL (0.2-1.2); Calc. Creatinine Clearance 123 mL/min (70-130); Calcium 7.2 mg/dL (7.8-10.44); Carbon Dioxide 26 mmol/L (23-31); Chloride 107 mmol/L (98-107); Globulin 2.5 g/dL (2.4-3.5); Glucose 105 mg/dL (83-110); Magnesium 1.7 mg/dL (1.6-2.6); Sodium 141 mmol/L (136-145)
[2020-06-04 06:09] LABS: Phosphorus 1.8 mg/dL (2.3-4.7)
[2020-06-04 06:19] LABS: Hemoglobin 8.1 g/dL (14.0-18.0); Mean Corpuscular HGB CONC 33.5 g/dL (32.0-36.0); Mean Platelet Volume 9.7 fL (7.4-10.4); Platelet Count 32 thou/uL (130-400); RBC Distribution Width 19.9 % (11.5-14.5); Red Blood Cell (RBC) Count 2.39 mill/uL (4.70-6.10); White Blood Cell (WBC) Count 3.3 thou/uL (4.8-10.8)
[2020-06-04] MEDS: 1/2 NS w/KCL 20 mEq 1,000 ML IV SCH ×2 (06:21→09:06)
[2020-06-04 06:25] LABS: Anisocytosis SLIGHT = 6-15 cells (100X) (0-5/hpf); Band 8 % (5-11); Lymphocytes 13 % (21-51); MDiff Complete? YES; Monocytes 2 % (0-10); Neutrophil 77 % (42-75); Platelet Morphology Comment Appears Decreased
[2020-06-04] MEDS ORDERED: Electrolyte Replacement Protocol 1 EACH FS SCH (06:30)
[2020-06-04] MEDS ORDERED: Magnesium 2 GM/50 ML 2 GM in Premix Bag 1 BAG IVPB SCH (06:45)
[2020-06-04] MEDS ORDERED: Potassium Chloride 20 MEQ TAB PO SCH (07:00)
[2020-06-04] MEDS: Potassium Chloride 20 MEQ in Premix Bag 1 BAG IVPB SCH ×2 (10:39→13:37)
[2020-06-04] MEDS ORDERED: D5 1/2 NS w/20 mEq KCL 1,000 ML IV SCH (11:00)
[2020-06-04] MEDS ORDERED: Cefepime 1 GM in Sodium Chloride 0.9% 100 ML IVPB SCH (12:00)
[2020-06-04] MEDS ORDERED: Iopamidol 300 61% 50 ML VIAL FS ONE (12:23)
[2020-06-04] MEDS: D5 1/2 NS w/20 mEq KCL 1,000 ML IV SCH (14:24)
[2020-06-04] MEDS: Potassium Bicarbonate/Cit Ac 20 MEQ TAB PO SCH ×2 (14:25→20:27)
[2020-06-04] MEDS: Multivitamin W/ Minerals 1 TAB PO SCH (14:25)
[2020-06-04] MEDS: Finasteride 5 MG TAB PO SCH (14:25)
[2020-06-04] MEDS: Folic Acid 1 MG TAB PO SCH (14:25)
[2020-06-04] MEDS: Lactinex Tablet PO SCH (14:25)
[2020-06-04] MEDS: Cyanocobalamin (Vitamin B-12) 1,000 MCG TAB PO SCH (14:25)
[2020-06-04] MEDS: Aspirin 81 mg Enteric Coated Tablet PO SCH (14:25)
[2020-06-04] MEDS: PHOS-NAK 1 PKT PACK PO SCH ×2 (14:33→17:55)
[2020-06-04] MEDS ORDERED: PHOS-NAK 1 PKT PACK PO SCH (17:45)
[2020-06-04] MEDS: Tamsulosin HCl 0.4 MG CAP PO SCH (20:27)
[2020-06-05] MEDS: D5 1/2 NS w/20 mEq KCL 1,000 ML IV SCH ×2 (01:31→06:38)
[2020-06-05] MEDS: Cefepime 1 GM in Sodium Chloride 0.9% 100 ML IVPB SCH ×2 (03:50→15:39)
[2020-06-05 05:53] LABS: Anion Gap 10 mmol/L (10-20); BUN (Urea Nitrogen) 9 mg/dL (8.4-25.7); Calc. Creatinine Clearance 116 mL/min (70-130); Calcium 7.2 mg/dL (7.8-10.44); Carbon Dioxide 26 mmol/L (23-31); Chloride 107 mmol/L (98-107); Glucose 157 mg/dL (83-110); Magnesium 1.7 mg/dL (1.6-2.6); Potassium 4.1 mmol/L (3.5-5.1); Sodium 139 mmol/L (136-145)
[2020-06-05 06:09] LABS: Anisocytosis SLIGHT = 6-15 cells (100X) (0-5/hpf); Band 2 % (5-11); Eosinophils 2 % (0-10); Hemoglobin 7.1 g/dL (14.0-18.0); Lymphocytes 11 % (21-51); MDiff Complete? YES; Macrocytosis SLIGHT = 6-15 cells (100X) (0-5/hpf); Mean Corpuscular HGB CONC 33.9 g/dL (32.0-36.0); Mean Corpuscular Hemoglobin 34.9 pg (27.0-31.0); Mean Platelet Volume 10.3 fL (7.4-10.4); Neutrophil 84 % (42-75); Platelet Count 19 thou/uL (130-400); Platelet Morphology Comment Appears Decreased; RBC Distribution Width 19.7 % (11.5-14.5); Red Blood Cell (RBC) Count 2.03 mill/uL (4.70-6.10); White Blood Cell (WBC) Count 3.2 thou/uL (4.8-10.8)
[2020-06-05] MEDS ORDERED: Magnesium 2 GM/50 ML 2 GM in Premix Bag 1 BAG IVPB SCH (06:30)
[2020-06-05] MEDS: Folic Acid 1 MG TAB PO SCH ×2 (08:36→12:17)
[2020-06-05] MEDS: Multivitamin W/ Minerals 1 TAB PO SCH ×2 (08:36→12:17)
[2020-06-05] MEDS: Cyanocobalamin (Vitamin B-12) 1,000 MCG TAB PO SCH ×2 (08:36→12:17)
[2020-06-05] MEDS: Aspirin 81 mg Enteric Coated Tablet PO SCH ×2 (08:36)
[2020-06-05] MEDS: Lactinex Tablet PO SCH ×2 (08:36→12:17)
[2020-06-05] MEDS: Potassium Bicarbonate/Cit Ac 20 MEQ TAB PO SCH ×3 (08:36→20:38)
[2020-06-05] MEDS: Finasteride 5 MG TAB PO SCH ×2 (08:36→12:17)
[2020-06-05] MEDS ORDERED: Potassium Phosphate 15 MMOL in Sodium Chloride 0.9% 250 ML 250 ML IVPB SCH (10:00)
[2020-06-05] MEDS: Dextrose 5 %-0.45 % NaCl 1,000 ML IV SCH (17:48)
[2020-06-05] MEDS: Tamsulosin HCl 0.4 MG CAP PO SCH (20:36)
[2020-06-06] MEDS: Cefepime 1 GM in Sodium Chloride 0.9% 100 ML IVPB SCH ×2 (04:03→16:38)
[2020-06-06] MEDS: Dextrose 5 %-0.45 % NaCl 1,000 ML IV SCH ×2 (04:03→12:57)
[2020-06-06 06:01] LABS: Platelet Count 14 thou/uL (130-400)
[2020-06-06 06:09] LABS: Anion Gap 6 mmol/L (10-20); BUN (Urea Nitrogen) 8 mg/dL (8.4-25.7); Calc. Creatinine Clearance 125 mL/min (70-130); Calcium 7.5 mg/dL (7.8-10.44); Carbon Dioxide 28 mmol/L (23-31); Chloride 106 mmol/L (98-107); Glucose 108 mg/dL (83-110); Potassium 4.3 mmol/L (3.5-5.1); Sodium 136 mmol/L (136-145)
[2020-06-06 06:29] LABS: #Eosinphils 0.1 thou/uL (0.0-0.7); #Lymphocytes 0.3 thou/uL (1.20-3.40); #Monocytes 0.1 thou/uL (0.11-0.59); #Neutrophils 1.7 thou/uL (1.40-6.50); %Basophils 0.8 % (0.0-1.0); %Eosinophils 3.5 % (0.0-10.0); %Lymphocytes 15.4 % (21.0-51.0); %Monocytes 3.5 % (0.0-10.0); %Neutrophils 76.7 % (42.0-75.0); Hemoglobin 6.7 g/dL (14.0-18.0); Mean Corpuscular HGB CONC 34.1 g/dL (32.0-36.0); Mean Corpuscular Hemoglobin 35.2 pg (27.0-31.0); Mean Platelet Volume 10.5 fL (7.4-10.4); RBC Distribution Width 19.3 % (11.5-14.5); White Blood Cell (WBC) Count 2.2 thou/uL (4.8-10.8)
[2020-06-06 07:27] LABS: MDiff Complete? YES; Macrocytosis SLIGHT = 6-15 cells (100X) (0-5/hpf); Platelet Morphology Comment Appears Decreased; Polychromasia SLIGHT = 2-3 cells (100X) (0-2/hpf)
[2020-06-06] MEDS: Lactinex Tablet PO SCH (10:16)
[2020-06-06] MEDS: Potassium Bicarbonate/Cit Ac 20 MEQ TAB PO SCH ×2 (10:16→21:53)
[2020-06-06] MEDS: Folic Acid 1 MG TAB PO SCH (10:16)
[2020-06-06] MEDS: Finasteride 5 MG TAB PO SCH (10:16)
[2020-06-06] MEDS: Cyanocobalamin (Vitamin B-12) 1,000 MCG TAB PO SCH (10:16)
[2020-06-06] MEDS: Pantoprazole 40 MG GRANULES PACKET PER TUBE SCH (10:41)
[2020-06-06] MEDS: Multivits W-Minerals Liquid 15 ML LIQ PER TUBE SCH (12:54)
[2020-06-06] MEDS ORDERED: Iopamidol 300 61% 50 ML VIAL FS ONE (15:25)
[2020-06-06] MEDS ORDERED: Labetalol HCl 100 MG/20 ML VIAL ONE (15:59)
[2020-06-06] MEDS: Tamsulosin HCl 0.4 MG CAP PO SCH (21:52)
[2020-06-07] MEDS: Cefepime 1 GM in Sodium Chloride 0.9% 100 ML IVPB SCH ×2 (03:21→16:19)
[2020-06-07 05:49] LABS: #Lymphocytes 0.4 thou/uL (1.20-3.40); #Monocytes 0.1 thou/uL (0.11-0.59); #Neutrophils 1.6 thou/uL (1.40-6.50); %Basophils 0.3 % (0.0-1.0); %Monocytes 4.5 % (0.0-10.0); %Neutrophils 75.2 % (42.0-75.0); Hemoglobin 8.3 g/dL (14.0-18.0); Mean Corpuscular HGB CONC 34.5 g/dL (32.0-36.0); Mean Corpuscular Hemoglobin 34.6 pg (27.0-31.0); Platelet Count 39 thou/uL (130-400); RBC Distribution Width 18.4 % (11.5-14.5); White Blood Cell (WBC) Count 2.1 thou/uL (4.8-10.8)
[2020-06-07 06:01] LABS: Anion Gap 9 mmol/L (10-20); BUN (Urea Nitrogen) 9 mg/dL (8.4-25.7); Calc. Creatinine Clearance 138 mL/min (70-130); Calcium 7.6 mg/dL (7.8-10.44); Carbon Dioxide 25 mmol/L (23-31); Chloride 106 mmol/L (98-107); Glucose 117 mg/dL (83-110); Potassium 4.4 mmol/L (3.5-5.1); Sodium 136 mmol/L (136-145)
[2020-06-07] MEDS: Lactinex Tablet PO SCH (09:09)
[2020-06-07] MEDS: Finasteride 5 MG TAB PO SCH (09:09)
[2020-06-07] MEDS: Cyanocobalamin (Vitamin B-12) 1,000 MCG TAB PO SCH (09:09)
[2020-06-07] MEDS: Potassium Bicarbonate/Cit Ac 20 MEQ TAB PO SCH ×2 (09:09→21:27)
[2020-06-07] MEDS: Folic Acid 1 MG TAB PO SCH (09:09)
[2020-06-07] MEDS: Pantoprazole 40 MG GRANULES PACKET PER TUBE SCH (09:09)
[2020-06-07] MEDS: Multivits W-Minerals Liquid 15 ML LIQ PER TUBE SCH (09:10)
[2020-06-07] MEDS: Tamsulosin HCl 0.4 MG CAP PO SCH (21:27)
[2020-06-08] MEDS: Cefepime 1 GM in Sodium Chloride 0.9% 100 ML IVPB SCH (04:56)
[2020-06-08 06:38] LABS: Anion Gap 10 mmol/L (10-20); BUN (Urea Nitrogen) 10 mg/dL (8.4-25.7); Calc. Creatinine Clearance 121 mL/min (70-130); Calcium 8.4 mg/dL (7.8-10.44); Carbon Dioxide 26 mmol/L (23-31); Chloride 105 mmol/L (98-107); Glucose 90 mg/dL (83-110); Potassium 5.1 mmol/L (3.5-5.1); Sodium 136 mmol/L (136-145)
[2020-06-08 06:41] LABS: #Lymphocytes 0.5 thou/uL (1.20-3.40); #Monocytes 0.2 thou/uL (0.11-0.59); #Neutrophils 1.5 thou/uL (1.40-6.50); %Lymphocytes 21.7 % (21.0-51.0); %Monocytes 8.7 % (0.0-10.0); %Neutrophils 67.6 % (42.0-75.0); Hemoglobin 8.3 g/dL (14.0-18.0); Mean Corpuscular HGB CONC 34.3 g/dL (32.0-36.0); Mean Corpuscular Hemoglobin 34.6 pg (27.0-31.0); Mean Platelet Volume 9.7 fL (7.4-10.4); Platelet Count 33 thou/uL (130-400); RBC Distribution Width 17.8 % (11.5-14.5); Red Blood Cell (RBC) Count 2.39 mill/uL (4.70-6.10); White Blood Cell (WBC) Count 2.2 thou/uL (4.8-10.8)
[2020-06-08] MEDS: Cyanocobalamin (Vitamin B-12) 1,000 MCG TAB PO SCH (09:40)
[2020-06-08] MEDS: Finasteride 5 MG TAB PO SCH (09:40)
[2020-06-08] MEDS: Folic Acid 1 MG TAB PO SCH (09:40)
[2020-06-08] MEDS: Lactinex Tablet PO SCH (09:41)
[2020-06-08] MEDS: Potassium Bicarbonate/Cit Ac 20 MEQ TAB PO SCH ×2 (09:41→20:30)
[2020-06-08] MEDS: Famotidine 20 MG TAB PER TUBE SCH (09:44)
[2020-06-08] MEDS: Multivits W-Minerals Liquid 15 ML LIQ PER TUBE SCH (09:58)
[2020-06-08 12:18] VITALS: BMI 24.4
[2020-06-08] MEDS ORDERED: Sodium Bicarbonate Tab 325 MG TAB PER TUBE PRN (17:15)
[2020-06-08] MEDS: Tamsulosin HCl 0.4 MG CAP PO SCH (20:23)
[2020-06-09 06:16] LABS: #Lymphocytes 0.4 thou/uL (1.20-3.40); #Monocytes 0.2 thou/uL (0.11-0.59); #Neutrophils 1.2 thou/uL (1.40-6.50); %Basophils 0.9 % (0.0-1.0); %Eosinophils 1.2 % (0.0-10.0); %Lymphocytes 20.3 % (21.0-51.0); %Neutrophils 66.6 % (42.0-75.0); Hemoglobin 8.2 g/dL (14.0-18.0); Mean Corpuscular HGB CONC 33.3 g/dL (32.0-36.0); Mean Corpuscular Hemoglobin 33.9 pg (27.0-31.0); Mean Platelet Volume 9.9 fL (7.4-10.4); Platelet Count 31 thou/uL (130-400); RBC Distribution Width 18.1 % (11.5-14.5); Red Blood Cell (RBC) Count 2.42 mill/uL (4.70-6.10); White Blood Cell (WBC) Count 1.9 thou/uL (4.8-10.8)
[2020-06-09 06:38] LABS: Anion Gap 12 mmol/L (10-20); BUN (Urea Nitrogen) 14 mg/dL (8.4-25.7); Calc. Creatinine Clearance 117 mL/min (70-130); Calcium 8.3 mg/dL (7.8-10.44); Carbon Dioxide 25 mmol/L (23-31); Chloride 105 mmol/L (98-107); Glucose 145 mg/dL (83-110); Sodium 138 mmol/L (136-145)
[2020-06-09] MEDS: Multivits W-Minerals Liquid 15 ML LIQ PER TUBE SCH (08:41)
[2020-06-09] MEDS: Famotidine 20 MG TAB PER TUBE SCH (08:41)
[2020-06-09] MEDS: Lactinex Tablet PO SCH (08:42)
[2020-06-09] MEDS: Potassium Bicarbonate/Cit Ac 20 MEQ TAB PO SCH ×2 (08:42→20:41)
[2020-06-09] MEDS: Finasteride 5 MG TAB PO SCH (08:42)
[2020-06-09] MEDS: Folic Acid 1 MG TAB PO SCH (08:42)
[2020-06-09] MEDS: Cyanocobalamin (Vitamin B-12) 1,000 MCG TAB PO SCH (08:42)
[2020-06-09] MEDS: Tamsulosin HCl 0.4 MG CAP PO SCH (20:42)
[2020-06-10 06:04] LABS: Hemoglobin 7.7 g/dL (14.0-18.0); Mean Corpuscular HGB CONC 34.3 g/dL (32.0-36.0); Mean Corpuscular Hemoglobin 34.4 pg (27.0-31.0); Mean Platelet Volume 9.5 fL (7.4-10.4); Platelet Count 25 thou/uL (130-400); RBC Distribution Width 17.8 % (11.5-14.5); Red Blood Cell (RBC) Count 2.25 mill/uL (4.70-6.10); White Blood Cell (WBC) Count 1.7 thou/uL (4.8-10.8)
[2020-06-10 06:14] LABS: Anion Gap 12 mmol/L (10-20); BUN (Urea Nitrogen) 14 mg/dL (8.4-25.7); Calc. Creatinine Clearance 0 mL/min (70-130); Calcium 8.2 mg/dL (7.8-10.44); Carbon Dioxide 28 mmol/L (23-31); Chloride 103 mmol/L (98-107); Glucose 115 mg/dL (83-110); Potassium 4.3 mmol/L (3.5-5.1); Sodium 139 mmol/L (136-145)
[2020-06-10 06:23] LABS: Band 12 % (5-11); Eosinophils 2 % (0-10); Lymphocytes 28 % (21-51); MDiff Complete? YES; Monocytes 25 % (0-10); Neutrophil 33 % (42-75); Platelet Morphology Comment Appears Decreased
[2020-06-10] MEDS: Famotidine 20 MG TAB PER TUBE SCH ×2 (10:09→10:11)
[2020-06-10] MEDS: Folic Acid 1 MG TAB PO SCH (10:11)
[2020-06-10] MEDS: Finasteride 5 MG TAB PO SCH (10:11)
[2020-06-10] MEDS: Cyanocobalamin (Vitamin B-12) 1,000 MCG TAB PO SCH (10:11)
[2020-06-10] MEDS: Lactinex Tablet PO SCH (10:12)
[2020-06-10] MEDS: Multivits W-Minerals Liquid 15 ML LIQ PER TUBE SCH (10:12)
[2020-06-10] MEDS: Potassium Bicarbonate/Cit Ac 20 MEQ TAB PO SCH ×2 (10:12→20:33)
[2020-06-10] MEDS: Tamsulosin HCl 0.4 MG CAP PO SCH (20:32)
[2020-06-10] MEDS: Pancrelipase DR 12,000 1 CAP FS PRN (22:26)
[2020-06-11 05:45] LABS: Hemoglobin 7.9 g/dL (14.0-18.0); Mean Corpuscular HGB CONC 34.6 g/dL (32.0-36.0); Mean Corpuscular Hemoglobin 34.7 pg (27.0-31.0); Mean Platelet Volume 10.6 fL (7.4-10.4); Platelet Count 25 thou/uL (130-400); RBC Distribution Width 17.9 % (11.5-14.5); Red Blood Cell (RBC) Count 2.28 mill/uL (4.70-6.10); White Blood Cell (WBC) Count 1.2 thou/uL (4.8-10.8)
[2020-06-11 06:10] LABS: Eosinophils 2 % (0-10); Lymphocytes 38 % (21-51); MDiff Complete? YES; Monocytes 9 % (0-10); Neutrophil 50 % (42-75); Platelet Morphology Comment Appears Adequate; Reactive Lymphocytes 1 % (0-10)
[2020-06-11] MEDS: Famotidine 20 MG TAB PER TUBE SCH (10:13)
[2020-06-11] MEDS: Cyanocobalamin (Vitamin B-12) 1,000 MCG TAB PO SCH (10:14)
[2020-06-11] MEDS: Multivits W-Minerals Liquid 15 ML LIQ PER TUBE SCH (10:14)
[2020-06-11] MEDS: Finasteride 5 MG TAB PO SCH (10:14)
[2020-06-11] MEDS: Folic Acid 1 MG TAB PO SCH (10:14)
[2020-06-11] MEDS: Lactinex Tablet PO SCH (10:14)
[2020-06-11] MEDS: Potassium Bicarbonate/Cit Ac 20 MEQ TAB PO SCH ×2 (10:14→21:00)
[2020-06-11] MEDS: Tamsulosin HCl 0.4 MG CAP PO SCH (21:00)
[2020-06-12 08:47] LABS: Hemoglobin 7.1 g/dL (14.0-18.0); Mean Corpuscular HGB CONC 34.5 g/dL (32.0-36.0); Mean Corpuscular Hemoglobin 34.4 pg (27.0-31.0); Mean Corpuscular Volume 99.6 fL (78.0-98.0); RBC Distribution Width 17.3 % (11.5-14.5); Red Blood Cell (RBC) Count 2.06 mill/uL (4.70-6.10)
[2020-06-12 09:10] LABS: Anisocytosis MODERATE=16-30 cells (100X) (0-5/hpf); Lymphocytes 28 % (21-51); MDiff Complete? YES; Monocytes 38 % (0-10); Neutrophil 34 % (42-75); Platelet Count 28 thou/uL (130-400); Platelet Morphology Comment Appears Decreased; White Blood Cell (WBC) Count 1.2 thou/uL (4.8-10.8)
[2020-06-12] MEDS: Folic Acid 1 MG TAB PO SCH (09:39)
[2020-06-12] MEDS: Lactinex Tablet PO SCH (09:40)
[2020-06-12] MEDS: Finasteride 5 MG TAB PO SCH (09:40)
[2020-06-12] MEDS: Cyanocobalamin (Vitamin B-12) 1,000 MCG TAB PO SCH (09:40)
[2020-06-12] MEDS: Potassium Bicarbonate/Cit Ac 20 MEQ TAB PO SCH ×2 (09:40→22:05)
[2020-06-12] MEDS: Multivits W-Minerals Liquid 15 ML LIQ PER TUBE SCH (09:40)
[2020-06-12] MEDS: Famotidine 20 MG TAB PER TUBE SCH (09:41)
[2020-06-12] MEDS: Tamsulosin HCl 0.4 MG CAP PO SCH (21:44)
[2020-06-13 05:30] LABS: Hemoglobin 7.4 g/dL (14.0-18.0); Mean Corpuscular HGB CONC 34.8 g/dL (32.0-36.0); Mean Corpuscular Hemoglobin 34.8 pg (27.0-31.0); Mean Corpuscular Volume 99.9 fL (78.0-98.0); Platelet Count 41 thou/uL (130-400); RBC Distribution Width 17.5 % (11.5-14.5); Red Blood Cell (RBC) Count 2.13 mill/uL (4.70-6.10); White Blood Cell (WBC) Count 1.8 thou/uL (4.8-10.8)
[2020-06-13 05:48] LABS: Band 4 % (5-11); Hypochromia SLIGHT = 6-15 cells (100X) (0-5/hpf); Lymphocytes 24 % (21-51); MDiff Complete? YES; Monocytes 32 % (0-10); Neutrophil 40 % (42-75); Platelet Morphology Comment Appears Decreased
[2020-06-13] MEDS: Finasteride 5 MG TAB PO SCH (09:28)
[2020-06-13] MEDS: Cyanocobalamin (Vitamin B-12) 1,000 MCG TAB PO SCH (09:28)
[2020-06-13] MEDS: Potassium Bicarbonate/Cit Ac 20 MEQ TAB PO SCH ×2 (09:28→21:41)
[2020-06-13] MEDS: Folic Acid 1 MG TAB PO SCH (09:28)
[2020-06-13] MEDS: Multivits W-Minerals Liquid 15 ML LIQ PER TUBE SCH (09:28)
[2020-06-13] MEDS: Lactinex Tablet PO SCH (09:28)
[2020-06-13] MEDS: Famotidine 20 MG TAB PER TUBE SCH (09:29)
[2020-06-13] MEDS: Pancrelipase DR 12,000 1 CAP FS PRN (09:47)
[2020-06-13] MEDS ORDERED: HYDROcodone/Acetaminophen 5/325 mg Tablet PO PRN (12:03)
[2020-06-13] MEDS: Tamsulosin HCl 0.4 MG CAP PO SCH (22:00)
[2020-06-14 06:10] LABS: Hemoglobin 7.3 g/dL (14.0-18.0); Mean Corpuscular Hemoglobin 34.1 pg (27.0-31.0); Mean Platelet Volume 9.4 fL (7.4-10.4); Platelet Count 62 thou/uL (130-400); RBC Distribution Width 17.8 % (11.5-14.5); Red Blood Cell (RBC) Count 2.14 mill/uL (4.70-6.10); White Blood Cell (WBC) Count 2.5 thou/uL (4.8-10.8)
[2020-06-14 06:53] LABS: Band 9 % (5-11); Eosinophils 3 % (0-10); Lymphocytes 17 % (21-51); MDiff Complete? YES; Monocytes 37 % (0-10); Neutrophil 32 % (42-75); Nucleated RBC 2 % (0); Platelet Morphology Comment Appears Decreased; Reactive Lymphocytes 2 % (0-10)
[2020-06-14] MEDS ORDERED: Saccharomyces boulardii 250 MG CAP PER TUBE SCH ×2 (09:00→12:30)
[2020-06-14 09:28] VITALS: TEMP 97.7
[2020-06-14] MEDS: Multivits W-Minerals Liquid 15 ML LIQ PER TUBE SCH (10:14)
[2020-06-14] MEDS: Famotidine 20 MG TAB PER TUBE SCH (10:14)
[2020-06-14] MEDS: Finasteride 5 MG TAB PO SCH (10:14)
[2020-06-14] MEDS: Potassium Bicarbonate/Cit Ac 20 MEQ TAB PO SCH (10:14)
[2020-06-14] MEDS: Folic Acid 1 MG TAB PO SCH (10:15)
[2020-06-14] MEDS: Cyanocobalamin (Vitamin B-12) 1,000 MCG TAB PO SCH (10:15)
[2020-06-14] MEDS: Lactinex Tablet PO SCH (10:38)
[2020-06-14] MEDS: Floranex Packet PO SCH ×2 (12:07→12:29)
[2020-06-14 16:01] VITALS: BP 94/54
== END 2020-06-14 16:30 | DRG 640 ==
LOC: ERS 10:04 → ERHOLD 13:55 → 2NO 18:01 → OBSVTOIN 06-02 14:37 → SJJU 06-03 22:43
PROVIDERS: ADMIT Internal Medicine; ATTEND Internal Medicine
PROC: 0DPDXUZ Removal of Feeding Device from Lower Intestinal Tract, External Approach (ICD-10-PCS; principal; 2020-06-06)
PROC: 0DHA3UZ Insertion of Feeding Device into Jejunum, Percutaneous Approach (ICD-10-PCS; 2020-06-06)
PROC: 30233R1 Transfusion of Nonautologous Platelets into Peripheral Vein, Percutaneous Approach (ICD-10-PCS; 2020-06-06)
PROC: 30233N1 Transfusion of Nonautologous Red Blood Cells into Peripheral Vein, Percutaneous Approach (ICD-10-PCS; 2020-06-06)
DX: E87.6 Hypokalemia (principal); D61.810 Antineoplastic chemotherapy induced pancytopenia; N39.0 Urinary tract infection, site not specified; K94.13 Enterostomy malfunction; E44.0 Moderate protein-calorie malnutrition; C15.9 Malignant neoplasm of esophagus, unspecified; C78.7 Secondary malignant neoplasm of liver and intrahepatic bile duct; E87.0 Hyperosmolality and hypernatremia; E87.2 Acidosis; E86.9 Volume depletion, unspecified; I95.1 Orthostatic hypotension; Z20.822 Contact with and (suspected) exposure to COVID-19; T45.1X5A Adverse effect of antineoplastic and immunosuppressive drugs, initial encounter; I10 Essential (primary) hypertension; E78.5 Hyperlipidemia, unspecified; E11.65 Type 2 diabetes mellitus with hyperglycemia; Z68.24 Body mass index [BMI] 24.0-24.9, adult; L89.152 Pressure ulcer of sacral region, stage 2; E86.0 Dehydration; D53.9 Nutritional anemia, unspecified; K21.9 Gastro-esophageal reflux disease without esophagitis; B96.5 Pseudomonas (aeruginosa) (mallei) (pseudomallei) as the cause of diseases classified elsewhere; Y83.8 Other surgical procedures as the cause of abnormal reaction of the patient, or of later complication, without mention of misadventure at the time of the procedure; A08.8 Other specified intestinal infections; N40.1 Benign prostatic hyperplasia with lower urinary tract symptoms; R33.8 Other retention of urine; Z79.899 Other long term (current) drug therapy; M20.41 Other hammer toe(s) (acquired), right foot
CPT/HCPCS: 36415; 36416; 36430; 49451; 70450; 80048; 80053; 81003; 81015; 82248; 82378; 83615; 83735; 84100; 84439; 84443; 84481; 84484; 84550; 85025; 86850; 86900; 86901; 87040; 87077; 87086; 87186; 87635; 93005; 93306; 96365; G0378; J0692; J0696; J1642; J2405; J3475; J3480; J3490; J7050; P9016; P9035; Q9967; U0003; U0005

== ENCOUNTER 2020-08-04 11:08 | Outpatient (CLI) | payer MEDICARE | END 2020-08-04 11:09 | disposition home or self-care (01) | LOC: PET 11:08 | PROVIDERS: ATTEND Internal Medicine Hematology & Oncology | DX: C15.5 Malignant neoplasm of lower third of esophagus (principal); K22.8 Other specified diseases of esophagus | CPT/HCPCS: 78815; A9552 ==

== ENCOUNTER → 2020-08-31 | Day surgery (SDC) | payer MEDICARE | LOC: RAD 10:42 | PROVIDERS: ATTEND Radiology Vascular & Interventional Radiology | PROC: 0D2DXUZ Change Feeding Device in Lower Intestinal Tract, External Approach (ICD-10-PCS; principal; 2020-08-31) | DX: K94.13 Enterostomy malfunction (principal); E11.9 Type 2 diabetes mellitus without complications; I10 Essential (primary) hypertension; N40.0 Benign prostatic hyperplasia without lower urinary tract symptoms; K21.9 Gastro-esophageal reflux disease without esophagitis; E78.5 Hyperlipidemia, unspecified | CPT/HCPCS: 49451 ==

== ENCOUNTER 2020-09-04 20:27 | Emergency (ER) | payer MEDICARE ==
[2020-09-04 21:03] LABS: #Lymphocytes 0.7 thou/uL (1.20-3.40); #Monocytes 1.1 thou/uL (0.11-0.59); #Neutrophils 11.1 thou/uL (1.40-6.50); %Eosinophils 0.1 % (0.0-10.0); %Lymphocytes 5.3 % (21.0-51.0); %Monocytes 8.2 % (0.0-10.0); %Neutrophils 86.5 % (42.0-75.0); Hemoglobin 9.8 g/dL (14.0-18.0); Mean Corpuscular HGB CONC 33.6 g/dL (32.0-36.0); Mean Corpuscular Hemoglobin 34.5 pg (27.0-31.0); Mean Platelet Volume 7.3 fL (7.4-10.4); Platelet Count 240 thou/uL (130-400); RBC Distribution Width 15.3 % (11.5-14.5); Red Blood Cell (RBC) Count 2.85 mill/uL (4.70-6.10); White Blood Cell (WBC) Count 12.9 thou/uL (4.8-10.8)
[2020-09-04 21:07] LABS: Bilirubin Negative (Negative); Blood, Urine 3+ (Negative); Clarity Turbid (Clear); Glucose, Urine (Dipstick) Normal (Negative); Ketone, Urine Negative (Negative); Leukocyte 250 Leu/uL (Negative); Nitrite Negative (Negative); Protein, Urine (Dipstick) 100 mg/dL (Neg-Trace); RBC/HPF Greater than 50 HPF (0-3); Specific Gravity, Urine 1.008 (1.002-1.036); Squamous Epithelial None Seen HPF (0-3); Urobilinogen Normal mg/dL (Less than 2); Yeast-Budding 1+ HPF (None Seen); pH, Urine 8.5 (5.0-9.0)
[2020-09-04 21:12] LABS: Bacteria/HPF Rare-Few HPF (None Seen)
[2020-09-04 21:13] LABS: INR-International Normal Ratio 1.1; PTT 31.2 sec (22.9-36.1); Prothrombin Time 14.7 sec (12.0-14.7)
[2020-09-04 21:28] LABS: ALT (SGPT) 30 U/L (8-55); AST (SGOT) 31 U/L (5-34); Albumin 2.9 g/dL (3.4-4.8); Alkaline Phosphatase 145 U/L (40-110); Anion Gap 13 mmol/L (10-20); BUN (Urea Nitrogen) 11 mg/dL (8.4-25.7); Bilirubin, Total 0.9 mg/dL (0.2-1.2); Calc. Creatinine Clearance 0 mL/min (70-130); Calcium 8.8 mg/dL (7.8-10.44); Carbon Dioxide 26 mmol/L (23-31); Chloride 105 mmol/L (98-107); Globulin 2.9 g/dL (2.4-3.5); Glucose 107 mg/dL (83-110); Potassium 3.7 mmol/L (3.5-5.1); Protein, Total 5.8 g/dL (5.8-8.1); Sodium 140 mmol/L (136-145)
== END 2020-09-04 22:45 | disposition home or self-care (01) ==
LOC: ERS 20:27
DX: R31.9 Hematuria, unspecified (principal); R30.0 Dysuria; E11.9 Type 2 diabetes mellitus without complications; I10 Essential (primary) hypertension; E78.5 Hyperlipidemia, unspecified; Z79.899 Other long term (current) drug therapy
CPT/HCPCS: 36415; 74176; 80053; 81003; 81015; 85025; 85610; 85730

== ENCOUNTER 2021-01-12 08:45 | Outpatient (CLI) | payer MEDICARE | END 2021-01-12 08:46 | disposition home or self-care (01) | LOC: PET 08:45 | PROVIDERS: ATTEND Internal Medicine Hematology & Oncology | DX: C15.5 Malignant neoplasm of lower third of esophagus (principal); M43.17 Spondylolisthesis, lumbosacral region; I25.10 Atherosclerotic heart disease of native coronary artery without angina pectoris; I25.84 Coronary atherosclerosis due to calcified coronary lesion; M48.07 Spinal stenosis, lumbosacral region; M51.37 Other intervertebral disc degeneration, lumbosacral region | CPT/HCPCS: 78815; A9552 ==

== ENCOUNTER 2021-04-04 09:21 | Outpatient (CLI) | payer MEDICARE | END 2021-04-04 09:22 | disposition home or self-care (01) | LOC: PET 09:21 | PROVIDERS: ATTEND Internal Medicine Hematology & Oncology | DX: C15.5 Malignant neoplasm of lower third of esophagus (principal); R91.8 Other nonspecific abnormal finding of lung field; K22.89 Other specified disease of esophagus | CPT/HCPCS: 78815; A9552 ==

== ENCOUNTER 2021-10-05 09:30 | Outpatient (CLI) | payer MEDICARE | END 2021-10-05 09:31 | disposition home or self-care (01) | LOC: PET 09:30 | PROVIDERS: ATTEND Internal Medicine Hematology & Oncology | DX: C15.5 Malignant neoplasm of lower third of esophagus (principal); D50.0 Iron deficiency anemia secondary to blood loss (chronic) | CPT/HCPCS: 78815; A9552 ==

== ENCOUNTER 2021-12-28 09:30 | Outpatient (CLI) | payer MEDICARE | END 2021-12-28 09:31 | disposition home or self-care (01) | LOC: PET 09:30 | PROVIDERS: ATTEND Internal Medicine Hematology & Oncology | DX: C15.5 Malignant neoplasm of lower third of esophagus (principal); D50.0 Iron deficiency anemia secondary to blood loss (chronic) | CPT/HCPCS: 78815; A9552 ==

== ENCOUNTER 2022-01-24 10:21 | Inpatient (IN) | payer MEDICARE ==
[2022-01-24 11:17] LABS: Hemoglobin 12.8 g/dL (14.0-18.0); Mean Corpuscular HGB CONC 30.1 g/dL (32.0-36.0); Mean Platelet Volume 7.3 fL (7.4-10.4); Platelet Count 328 thou/uL (130-400); RBC Distribution Width 16.8 % (11.5-14.5); Red Blood Cell (RBC) Count 3.88 mill/uL (4.70-6.10); White Blood Cell (WBC) Count 29.2 thou/uL (4.8-10.8)
[2022-01-24 11:39] LABS: Anisocytosis SLIGHT = 6-15 cells (100X) (0-5/hpf); Band 41 % (5-11); Lymphocytes 3 % (21-51); MDiff Complete? YES; Monocytes 6 % (0-10); Neutrophil 46 % (42-75); Platelet Morphology Comment Appears Adequate; Reactive Lymphocytes 4 % (0-10); Reflex for Review?? NO
[2022-01-24] MEDS ORDERED: Piperacillin/Tazobactam 4.5 GM VIAL ONE (11:52)
[2022-01-24 11:54] LABS: ALT (SGPT) 12 U/L (8-55); AST (SGOT) 9 U/L (5-34); Albumin 2.6 g/dL (3.4-4.8); Alkaline Phosphatase 118 U/L (40-110); Anion Gap 24 mmol/L (10-20); BUN (Urea Nitrogen) 30 mg/dL (8.4-25.7); Bilirubin, Total 1.1 mg/dL (0.2-1.2); Calc. Creatinine Clearance 0 mL/min (70-130); Calcium 8.1 mg/dL (7.8-10.44); Carbon Dioxide 16 mmol/L (23-31); Chloride 109 mmol/L (98-107); Estimated GFR 73; Globulin 2.7 g/dL (2.4-3.5); Glucose 210 mg/dL (83-110); Protein, Total 5.3 g/dL (5.8-8.1); Sodium 145 mmol/L (136-145)
[2022-01-24] MEDS ORDERED: Ondansetron PF 4 MG/2 ML Vial IVP PRN (13:30)
[2022-01-24] MEDS ORDERED: Dextrose 5% in Water 1,000 ML IV PRN (14:01)
[2022-01-24] MEDS ORDERED: Dextrose 50% Abboject 50 ML SYRINGE SLOW IVP PRN (14:01)
[2022-01-24 15:18] LABS: Lactic Acid 7.6 mmol/L (0.5-2.2)
[2022-01-24] MEDS ORDERED: Sodium Chloride 0.9% 1,000 ML IV SCH (17:30)
[2022-01-24 18:00] LABS: Lactic Acid 4.3 mmol/L (0.5-2.2)
[2022-01-24] MEDS ORDERED: VANCOMYCIN 1.25 GM/250 ML BAG 1.25 GM in Premix Bag 1 BAG IVPB SCH (20:00)
[2022-01-24 20:27] LABS: Vancomycin, Trough Less than 1.1 ug/mL
[2022-01-24] MEDS: Sodium Chloride 0.9% 1,000 ML IV SCH (20:27)
[2022-01-24] MEDS: Piperacillin/Tazobactam 3.375 GM in Sodium Chloride 0.9% 100 ML IVPB SCH (20:28)
[2022-01-24 20:42] LABS: Lactic Acid 5.1 mmol/L (0.5-2.2)
[2022-01-24] MEDS ORDERED: Vancomycin 1 GM in Premix Bag 1 BAG IVPB SCH (21:00)
[2022-01-24] MEDS ORDERED: Lactated Ringer's 500 ML IV SCH (21:15)
[2022-01-25] MEDS: Sodium Chloride 0.9% 1,000 ML IV SCH (01:58)
[2022-01-25 05:28] LABS: ALT (SGPT) 8 U/L (8-55); AST (SGOT) 15 U/L (5-34); Alkaline Phosphatase 85 U/L (40-110); Anion Gap 17 mmol/L (10-20); BUN (Urea Nitrogen) 39 mg/dL (8.4-25.7); Calc. Creatinine Clearance 53 mL/min (70-130); Calcium 7.6 mg/dL (7.8-10.44); Carbon Dioxide 20 mmol/L (23-31); Chloride 115 mmol/L (98-107); Estimated GFR 75; Globulin 2.2 g/dL (2.4-3.5); Glucose 134 mg/dL (83-110); Potassium 3.8 mmol/L (3.5-5.1); Protein, Total 4.2 g/dL (5.8-8.1); Sodium 148 mmol/L (136-145)
[2022-01-25 05:29] LABS: Band 52 % (5-11); Hemoglobin 11.3 g/dL (14.0-18.0); Hypochromia SLIGHT = 6-15 cells (100X) (0-5/hpf); Lymphocytes 4 % (21-51); MDiff Complete? YES; Macrocytosis SLIGHT = 6-15 cells (100X) (0-5/hpf); Mean Corpuscular Hemoglobin 33.6 pg (27.0-31.0); Mean Platelet Volume 8.1 fL (7.4-10.4); Monocytes 3 % (0-10); Neutrophil 39 % (42-75); Platelet Count 232 thou/uL (130-400); Platelet Morphology Comment Appears Adequate; RBC Distribution Width 16.7 % (11.5-14.5); Reactive Lymphocytes 2 % (0-10); Red Blood Cell (RBC) Count 3.35 mill/uL (4.70-6.10); White Blood Cell (WBC) Count 35.4 thou/uL (4.8-10.8)
[2022-01-25] MEDS: Piperacillin/Tazobactam 3.375 GM in Sodium Chloride 0.9% 100 ML IVPB SCH ×3 (05:32→22:15)
[2022-01-25] MEDS ORDERED: Lactated Ringer's 1,000 ML IV SCH (07:30)
[2022-01-25] MEDS: Enoxaparin Sodium 40 MG/0.4 ML SYRINGE SC SCH (07:56)
[2022-01-25 09:36] LABS: Lactic Acid 4.1 mmol/L (0.5-2.2)
[2022-01-25] MEDS: Lactated Ringer's 1,000 ML IV SCH ×2 (10:40→18:43)
[2022-01-25] MEDS ORDERED: GASTROGRAFIN 30 ML BOT ONE (11:19)
[2022-01-25 12:43] LABS: Lactic Acid 3.4 mmol/L (0.5-2.2)
[2022-01-25] MEDS ORDERED: Fentanyl 100 MCG/2 ML VIAL ONE (15:02)
[2022-01-25] MEDS ORDERED: Midazolam HCl 2 mg/2 ml Vial ONE (15:02)
[2022-01-25 16:37] LABS: Lactic Acid 3.3 mmol/L (0.5-2.2)
[2022-01-25] MEDS: Morphine 2 MG/ML VIAL SLOW IVP PRN (20:21)
[2022-01-25] MEDS: Vancomycin 1.5 GRAM/300 ML BAG 1.5 GM in Premix Bag 1 BAG IVPB SCH (20:24)
[2022-01-25] MEDS ORDERED: Melatonin 3 MG TAB PO PRN (22:57)
[2022-01-25] MEDS ORDERED: HYDROmorphone 0.5 MG/0.5 ML SYRINGE SLOW IVP SCH (23:30)
[2022-01-26] MEDS: Piperacillin/Tazobactam 3.375 GM in Sodium Chloride 0.9% 100 ML IVPB SCH ×3 (04:11→22:33)
[2022-01-26] MEDS: Morphine 2 MG/ML VIAL SLOW IVP PRN (04:11)
[2022-01-26] MEDS: Lactated Ringer's 1,000 ML IV SCH ×2 (04:44→14:47)
[2022-01-26 05:21] LABS: Band 33 % (5-11); Hemoglobin 10.9 g/dL (14.0-18.0); Lymphocytes 2 % (21-51); MDiff Complete? YES; Macrocytosis SLIGHT = 6-15 cells (100X) (0-5/hpf); Mean Corpuscular HGB CONC 30.4 g/dL (32.0-36.0); Mean Corpuscular Hemoglobin 33.3 pg (27.0-31.0); Mean Platelet Volume 8.4 fL (7.4-10.4); Metamyelocyte 2 % (0-0); Monocytes 5 % (0-10); Myelocyte 1 % (0-0); Neutrophil 57 % (42-75); Nucleated RBC 1 % (0); Platelet Count 190 thou/uL (130-400); RBC Distribution Width 16.7 % (11.5-14.5); Red Blood Cell (RBC) Count 3.28 mill/uL (4.70-6.10); Toxic Granulation SLIGHT; White Blood Cell (WBC) Count 22.7 thou/uL (4.8-10.8)
[2022-01-26] MEDS: Enoxaparin Sodium 40 MG/0.4 ML SYRINGE SC SCH (08:07)
[2022-01-26 08:31] LABS: Lactic Acid 2.4 mmol/L (0.5-2.2)
[2022-01-26 08:49] LABS: Chloride 116 mmol/L (98-107); Potassium 4.1 mmol/L (3.5-5.1); Sodium 148 mmol/L (136-145)
[2022-01-26 08:50] LABS: Calcium 7.5 mg/dL (7.8-10.44); Globulin 2.2 g/dL (2.4-3.5); Glucose 120 mg/dL (83-110); Protein, Total 4.2 g/dL (5.8-8.1)
[2022-01-26 08:51] LABS: Anion Gap 18 mmol/L (10-20); Carbon Dioxide 18 mmol/L (23-31)
[2022-01-26 08:52] LABS: Bilirubin, Total 0.7 mg/dL (0.2-1.2)
[2022-01-26 08:53] LABS: Alkaline Phosphatase 70 U/L (40-110); Calc. Creatinine Clearance 45 mL/min (70-130); Estimated GFR 62
[2022-01-26 08:54] LABS: BUN (Urea Nitrogen) 52 mg/dL (8.4-25.7)
[2022-01-26 08:55] LABS: AST (SGOT) 15 U/L (5-34)
[2022-01-26 08:56] LABS: ALT (SGPT) 12 U/L (8-55); Magnesium 2.5 mg/dL (1.6-2.6)
[2022-01-26 13:06] LABS: Campy jejuni + coli by PCR Negative (Negative); STEC Shiga Toxin 1+2 Negative (Negative); Salmonella spp. by PCR Negative (Negative); Shigella spp + EIEC by PCR Negative (Negative)
[2022-01-26 14:28] LABS: Lactic Acid 2.1 mmol/L (0.5-2.2)
[2022-01-26 19:29] LABS: Vancomycin, Trough 16.6 ug/mL
[2022-01-26] MEDS: Vancomycin 1.5 GRAM/300 ML BAG 1.5 GM in Premix Bag 1 BAG IVPB SCH (20:44)
[2022-01-27] MEDS: Piperacillin/Tazobactam 3.375 GM in Sodium Chloride 0.9% 100 ML IVPB SCH ×3 (04:46→20:19)
[2022-01-27] MEDS: Lactated Ringer's 1,000 ML IV SCH ×3 (04:54→20:22)
[2022-01-27 05:43] LABS: ALT (SGPT) 11 U/L (8-55); AST (SGOT) 19 U/L (5-34); Albumin 1.8 g/dL (3.4-4.8); Alkaline Phosphatase 62 U/L (40-110); Anion Gap 11 mmol/L (10-20); BUN (Urea Nitrogen) 52 mg/dL (8.4-25.7); Bilirubin, Total 0.5 mg/dL (0.2-1.2); Calc. Creatinine Clearance 54 mL/min (70-130); Calcium 7.3 mg/dL (7.8-10.44); Carbon Dioxide 25 mmol/L (23-31); Chloride 117 mmol/L (98-107); Estimated GFR 77; Globulin 1.9 g/dL (2.4-3.5); Glucose 107 mg/dL (83-110); Magnesium 2.5 mg/dL (1.6-2.6); Potassium 3.6 mmol/L (3.5-5.1); Protein, Total 3.7 g/dL (5.8-8.1); Sodium 149 mmol/L (136-145)
[2022-01-27 05:52] LABS: Band 14 % (5-11); Hemoglobin 10.5 g/dL (14.0-18.0); Lymphocytes 2 % (21-51); MDiff Complete? YES; Macrocytosis SLIGHT = 6-15 cells (100X) (0-5/hpf); Mean Corpuscular HGB CONC 30.3 g/dL (32.0-36.0); Mean Corpuscular Hemoglobin 33.3 pg (27.0-31.0); Mean Platelet Volume 8.8 fL (7.4-10.4); Monocytes 12 % (0-10); Neutrophil 71 % (42-75); Nucleated RBC 1 % (0); Platelet Count 120 thou/uL (130-400); RBC Distribution Width 16.4 % (11.5-14.5); Red Blood Cell (RBC) Count 3.16 mill/uL (4.70-6.10); White Blood Cell (WBC) Count 20.2 thou/uL (4.8-10.8)
[2022-01-27] MEDS: Enoxaparin Sodium 40 MG/0.4 ML SYRINGE SC SCH (08:24)
[2022-01-27] MEDS: Morphine 2 MG/ML VIAL SLOW IVP PRN ×2 (08:24→13:11)
[2022-01-28] MEDS: Morphine 2 MG/ML VIAL SLOW IVP PRN ×2 (00:32→07:40)
[2022-01-28] MEDS: Piperacillin/Tazobactam 3.375 GM in Sodium Chloride 0.9% 100 ML IVPB SCH ×3 (04:38→20:19)
[2022-01-28 05:43] LABS: Anion Gap 14 mmol/L (10-20); BUN (Urea Nitrogen) 48 mg/dL (8.4-25.7); Calc. Creatinine Clearance 56 mL/min (70-130); Calcium 7.4 mg/dL (7.8-10.44); Carbon Dioxide 20 mmol/L (23-31); Chloride 120 mmol/L (98-107); Estimated GFR 80; Glucose 126 mg/dL (83-110); Potassium 3.7 mmol/L (3.5-5.1); Sodium 150 mmol/L (136-145)
[2022-01-28 06:22] LABS: Hemoglobin 11.6 g/dL (14.0-18.0); Mean Corpuscular HGB CONC 30.3 g/dL (32.0-36.0); Mean Corpuscular Hemoglobin 33.2 pg (27.0-31.0); Mean Platelet Volume 9.7 fL (7.4-10.4); Platelet Count 100 thou/uL (130-400); RBC Distribution Width 16.9 % (11.5-14.5); Red Blood Cell (RBC) Count 3.48 mill/uL (4.70-6.10); White Blood Cell (WBC) Count 30.6 thou/uL (4.8-10.8)
[2022-01-28 06:23] LABS: Anisocytosis SLIGHT = 6-15 cells (100X) (0-5/hpf); Band 16 % (5-11); MDiff Complete? YES; Macrocytosis SLIGHT = 6-15 cells (100X) (0-5/hpf); Monocytes 6 % (0-10); Neutrophil 78 % (42-75); Platelet Morphology Comment Appears Decreased
[2022-01-28] MEDS: Lactated Ringer's 1,000 ML IV SCH ×2 (07:35→16:55)
[2022-01-28] MEDS: Enoxaparin Sodium 40 MG/0.4 ML SYRINGE SC SCH (09:03)
[2022-01-28] MEDS ORDERED: metroNIDAZOLE 500 MG TAB PO SCH (12:00)
[2022-01-28] MEDS ORDERED: Piperacillin/Tazobactam 3.375 GM in Sodium Chloride 0.9% 100 ML IVPB SCH ×2 (12:00→16:00)
[2022-01-28] MEDS: HumaLOG 300 UNITS/3 ML VIAL SC PRN ×2 (16:49→20:31)
[2022-01-28] MEDS: Morphine 4 MG/ML VIAL SLOW IVP PRN (17:16)
[2022-01-28] MEDS: Dextrose 5% in Water 1,000 ML IV SCH (18:34)
[2022-01-28] MEDS ORDERED: Lactated Ringer's 1,000 ML IV SCH ×2 (19:30→22:00)
[2022-01-29] MEDS ORDERED: Dextrose 5%-Lactated Ringers 1,000 ML IV SCH (02:00)
[2022-01-29] MEDS: Dextrose 5% in Water 1,000 ML IV SCH ×3 (03:37→21:15)
[2022-01-29] MEDS: Piperacillin/Tazobactam 3.375 GM in Sodium Chloride 0.9% 100 ML IVPB SCH ×3 (04:14→21:16)
[2022-01-29 05:33] LABS: Anion Gap 9 mmol/L (10-20); BUN (Urea Nitrogen) 42 mg/dL (8.4-25.7); Calc. Creatinine Clearance 57 mL/min (70-130); Calcium 7.2 mg/dL (7.8-10.44); Carbon Dioxide 24 mmol/L (23-31); Chloride 119 mmol/L (98-107); Estimated GFR 82; Glucose 139 mg/dL (83-110); Potassium 3.2 mmol/L (3.5-5.1); Sodium 149 mmol/L (136-145)
[2022-01-29 06:06] LABS: Band 10 % (5-11); Hemoglobin 10.5 g/dL (14.0-18.0); Lymphocytes 2 % (21-51); MDiff Complete? YES; Macrocytosis SLIGHT = 6-15 cells (100X) (0-5/hpf); Mean Corpuscular HGB CONC 31.5 g/dL (32.0-36.0); Mean Corpuscular Hemoglobin 34.1 pg (27.0-31.0); Mean Platelet Volume 9.9 fL (7.4-10.4); Metamyelocyte 2 % (0-0); Monocytes 12 % (0-10); Myelocyte 1 % (0-0); Neutrophil 73 % (42-75); Nucleated RBC 3 % (0); Platelet Count 81 thou/uL (130-400); Platelet Morphology Comment Appears Decreased; RBC Distribution Width 16.7 % (11.5-14.5); Red Blood Cell (RBC) Count 3.09 mill/uL (4.70-6.10); White Blood Cell (WBC) Count 20.1 thou/uL (4.8-10.8)
[2022-01-29] MEDS: Enoxaparin Sodium 40 MG/0.4 ML SYRINGE SC SCH (09:42)
[2022-01-29] MEDS: Lactated Ringer's 1,000 ML IV SCH ×2 (11:32→21:14)
[2022-01-29] MEDS: Potassium Chloride 10 MEQ in Premix Bag 1 BAG IVPB SCH ×3 (11:33→15:24)
[2022-01-30] MEDS: Piperacillin/Tazobactam 3.375 GM in Sodium Chloride 0.9% 100 ML IVPB SCH ×3 (04:53→20:00)
[2022-01-30] MEDS: Lactated Ringer's 1,000 ML IV SCH ×2 (04:54→15:24)
[2022-01-30] MEDS: Dextrose 5% in Water 1,000 ML IV SCH ×2 (04:54→15:24)
[2022-01-30 05:34] LABS: Anisocytosis SLIGHT = 6-15 cells (100X) (0-5/hpf); Band 12 % (5-11); Hemoglobin 10.3 g/dL (14.0-18.0); Lymphocytes 4 % (21-51); MDiff Complete? YES; Mean Corpuscular HGB CONC 31.4 g/dL (32.0-36.0); Mean Corpuscular Hemoglobin 34.4 pg (27.0-31.0); Mean Platelet Volume 11.6 fL (7.4-10.4); Neutrophil 84 % (42-75); Platelet Count 88 thou/uL (130-400); Platelet Morphology Comment Appears Decreased; RBC Distribution Width 17.6 % (11.5-14.5); White Blood Cell (WBC) Count 18.7 thou/uL (4.8-10.8)
[2022-01-30 07:20] LABS: Calcium 6.7 mg/dL (7.8-10.44); Chloride 117 mmol/L (98-107); Potassium 3.9 mmol/L (3.5-5.1); Sodium 146 mmol/L (136-145)
[2022-01-30 07:21] LABS: Glucose 148 mg/dL (83-110)
[2022-01-30 07:22] LABS: Anion Gap 9 mmol/L (10-20); Carbon Dioxide 24 mmol/L (23-31)
[2022-01-30 07:24] LABS: Calc. Creatinine Clearance 78 mL/min (70-130); Estimated GFR 88
[2022-01-30 07:25] LABS: BUN (Urea Nitrogen) 33 mg/dL (8.4-25.7)
[2022-01-30] MEDS: Morphine 4 MG/ML VIAL SLOW IVP PRN (20:06)
[2022-01-31] MEDS: Lactated Ringer's 1,000 ML IV SCH (00:02)
[2022-01-31] MEDS: Dextrose 5% in Water 1,000 ML IV SCH (00:02)
[2022-01-31] MEDS: Piperacillin/Tazobactam 3.375 GM in Sodium Chloride 0.9% 100 ML IVPB SCH ×4 (03:42→22:09)
[2022-01-31 09:15] LABS: Hemoglobin 11.3 g/dL (14.0-18.0); Mean Corpuscular HGB CONC 30.1 g/dL (32.0-36.0); Mean Corpuscular Hemoglobin 32.7 pg (27.0-31.0); RBC Distribution Width 17.8 % (11.5-14.5)
[2022-01-31 09:30] LABS: ALT (SGPT) 32 U/L (8-55); AST (SGOT) 39 U/L (5-34); Albumin 1.5 g/dL (3.4-4.8); Alkaline Phosphatase 72 U/L (40-110); Anion Gap 10 mmol/L (10-20); BUN (Urea Nitrogen) 26 mg/dL (8.4-25.7); Bilirubin, Total 0.9 mg/dL (0.2-1.2); Calc. Creatinine Clearance 85 mL/min (70-130); Calcium 6.7 mg/dL (7.8-10.44); Carbon Dioxide 20 mmol/L (23-31); Chloride 111 mmol/L (98-107); Estimated GFR 89; Globulin 1.8 g/dL (2.4-3.5); Glucose 144 mg/dL (83-110); Phosphorus 2.2 mg/dL (2.3-4.7); Potassium 3.3 mmol/L (3.5-5.1); Protein, Total 3.3 g/dL (5.8-8.1); Sodium 138 mmol/L (136-145)
[2022-01-31 09:41] LABS: Band 9 % (5-11); Hypochromia SLIGHT = 6-15 cells (100X) (0-5/hpf); Lymphocytes 6 % (21-51); MDiff Complete? YES; Macrocytosis SLIGHT = 6-15 cells (100X) (0-5/hpf); Mean Platelet Volume 10.8 fL (7.4-10.4); Monocytes 6 % (0-10); Neutrophil 79 % (42-75); Ovalocytes SLIGHT = 2-5 cells (100X) (0-1/hpf); Platelet Count 68 thou/uL (130-400); Platelet Morphology Comment Appears Decreased; Polychromasia SLIGHT = 2-3 cells (100X) (0-2/hpf); Red Blood Cell (RBC) Count 3.46 mill/uL (4.70-6.10); Target Cells SLIGHT = 2-5 cells (100X) (0-1/hpf); Tear Drops SLIGHT = 2-5 cells (100X) (0-1/hpf); White Blood Cell (WBC) Count 23.4 thou/uL (4.8-10.8)
[2022-01-31] MEDS ORDERED: Midazolam HCl 2 mg/2 ml Vial ONE (13:24)
[2022-01-31] MEDS ORDERED: FENTANYL 50 MCG/ML 1 ML VIAL ONE (13:25)
[2022-01-31 14:38] LABS: Heparin-Induced Ab (HITA) 0.11 OD (0.000-0.400)
[2022-01-31] MEDS ORDERED: Potassium Chloride 40 MEQ in Premix Bag 1 BAG IVPB SCH (16:30)
[2022-01-31] MEDS: Morphine 4 MG/ML VIAL SLOW IVP PRN (17:56)
[2022-01-31] MEDS: Potassium Chloride 20 MEQ in Premix Bag 1 BAG IVPB SCH ×2 (18:18→20:43)
[2022-02-01 04:22] LABS: ALT (SGPT) 28 U/L (8-55); AST (SGOT) 33 U/L (5-34); Albumin 1.7 g/dL (3.4-4.8); Alkaline Phosphatase 87 U/L (40-110); Anion Gap 12 mmol/L (10-20); BUN (Urea Nitrogen) 28 mg/dL (8.4-25.7); Bilirubin, Total 0.9 mg/dL (0.2-1.2); Calc. Creatinine Clearance 75 mL/min (70-130); Carbon Dioxide 19 mmol/L (23-31); Chloride 111 mmol/L (98-107); Estimated GFR 84; Glucose 116 mg/dL (83-110); Potassium 4.2 mmol/L (3.5-5.1); Protein, Total 3.7 g/dL (5.8-8.1); Sodium 138 mmol/L (136-145)
[2022-02-01] MEDS: Piperacillin/Tazobactam 3.375 GM in Sodium Chloride 0.9% 100 ML IVPB SCH (05:04)
[2022-02-01 05:32] LABS: Anisocytosis SLIGHT = 6-15 cells (100X) (0-5/hpf); Band 18 % (5-11); Hemoglobin 11.8 g/dL (14.0-18.0); Lymphocytes 9 % (21-51); MDiff Complete? YES; Mean Corpuscular HGB CONC 31.7 g/dL (32.0-36.0); Mean Corpuscular Hemoglobin 34.7 pg (27.0-31.0); Mean Platelet Volume 10.2 fL (7.4-10.4); Monocytes 4 % (0-10); Neutrophil 69 % (42-75); Platelet Count 85 thou/uL (130-400); RBC Distribution Width 18.1 % (11.5-14.5); Red Blood Cell (RBC) Count 3.39 mill/uL (4.70-6.10); White Blood Cell (WBC) Count 24.2 thou/uL (4.8-10.8)
[2022-02-01] MEDS ORDERED: Vancomycin 1.5 GRAM/300 ML BAG 1.5 GM in Premix Bag 1 BAG IVPB SCH (11:00)
[2022-02-01] MEDS: PHOS-NAK 1 PKT PACK PO SCH ×2 (13:00→18:17)
[2022-02-01] MEDS ORDERED: Cefepime 1 GM in Sodium Chloride 0.9% 100 ML IVPB SCH (13:00)
[2022-02-01] MEDS ORDERED: Iopamidol 370 76% 100 ML VIAL ONE (13:58)
[2022-02-01] MEDS: metroNIDAZOLE 500 MG in Premix Bag 1 BAG IVPB SCH ×2 (15:50→21:29)
[2022-02-01] MEDS: Vancomycin HCl 125 MG/5 ML (BATCHED) UDCUP PO SCH (18:16)
[2022-02-02] MEDS: PHOS-NAK 1 PKT PACK PO SCH (00:11)
[2022-02-02] MEDS: Vancomycin HCl 125 MG/5 ML (BATCHED) UDCUP PO SCH ×4 (00:12→20:53)
[2022-02-02 04:27] LABS: Phosphorus 3.6 mg/dL (2.3-4.7)
[2022-02-02 04:37] LABS: ALT (SGPT) 19 U/L (8-55); AST (SGOT) 20 U/L (5-34); Albumin 1.6 g/dL (3.4-4.8); Alkaline Phosphatase 75 U/L (40-110); Anion Gap 11 mmol/L (10-20); BUN (Urea Nitrogen) 29 mg/dL (8.4-25.7); Bilirubin, Total 0.5 mg/dL (0.2-1.2); Calc. Creatinine Clearance 79 mL/min (70-130); Calcium 6.9 mg/dL (7.8-10.44); Carbon Dioxide 17 mmol/L (23-31); Chloride 111 mmol/L (98-107); Estimated GFR 88; Globulin 1.8 g/dL (2.4-3.5); Glucose 135 mg/dL (83-110); Potassium 3.4 mmol/L (3.5-5.1); Protein, Total 3.4 g/dL (5.8-8.1); Sodium 136 mmol/L (136-145)
[2022-02-02 05:11] LABS: Anisocytosis SLIGHT = 6-15 cells (100X) (0-5/hpf); Band 6 % (5-11); Hemoglobin 10.2 g/dL (14.0-18.0); Hypochromia SLIGHT = 6-15 cells (100X) (0-5/hpf); Lymphocytes 3 % (21-51); MDiff Complete? YES; Macrocytosis SLIGHT = 6-15 cells (100X) (0-5/hpf); Mean Corpuscular HGB CONC 30.3 g/dL (32.0-36.0); Mean Corpuscular Hemoglobin 32.5 pg (27.0-31.0); Mean Platelet Volume 9.9 fL (7.4-10.4); Monocytes 1 % (0-10); Neutrophil 90 % (42-75); Ovalocytes SLIGHT = 2-5 cells (100X) (0-1/hpf); Platelet Count 89 thou/uL (130-400); Platelet Morphology Comment Appears Decreased; Polychromasia SLIGHT = 2-3 cells (100X) (0-2/hpf); Red Blood Cell (RBC) Count 3.14 mill/uL (4.70-6.10); White Blood Cell (WBC) Count 21.1 thou/uL (4.8-10.8)
[2022-02-02] MEDS: metroNIDAZOLE 500 MG in Premix Bag 1 BAG IVPB SCH ×3 (06:08→21:57)
[2022-02-02] MEDS ORDERED: Potassium Chloride 20 MEQ TAB PO SCH (08:00)
[2022-02-02] MEDS: Potassium Chloride 20 MEQ TAB PO SCH (16:28)
[2022-02-02] MEDS: Albumin 25% 25 GM/100 ML BOT IVPB SCH (20:52)
[2022-02-03 04:46] LABS: #Lymphocytes 0.7 thou/uL (1.20-3.40); #Monocytes 1.7 thou/uL (0.11-0.59); #Neutrophils 16.4 thou/uL (1.40-6.50); %Eosinophils 0.1 % (0.0-10.0); %Lymphocytes 3.5 % (21.0-51.0); %Monocytes 9.2 % (0.0-10.0); %Neutrophils 87.2 % (42.0-75.0); Hemoglobin 9.4 g/dL (14.0-18.0); Mean Corpuscular HGB CONC 30.7 g/dL (32.0-36.0); Mean Corpuscular Hemoglobin 33.3 pg (27.0-31.0); Mean Platelet Volume 9.4 fL (7.4-10.4); Platelet Count 83 thou/uL (130-400); Red Blood Cell (RBC) Count 2.83 mill/uL (4.70-6.10); White Blood Cell (WBC) Count 18.8 thou/uL (4.8-10.8)
[2022-02-03] MEDS: metroNIDAZOLE 500 MG in Premix Bag 1 BAG IVPB SCH ×3 (05:05→22:06)
[2022-02-03] MEDS: Vancomycin HCl 125 MG/5 ML (BATCHED) UDCUP PO SCH ×4 (05:05→21:08)
[2022-02-03 05:11] LABS: ALT (SGPT) 13 U/L (8-55); AST (SGOT) 14 U/L (5-34); Albumin 2.1 g/dL (3.4-4.8); Alkaline Phosphatase 53 U/L (40-110); Anion Gap 9 mmol/L (10-20); BUN (Urea Nitrogen) 29 mg/dL (8.4-25.7); Bilirubin, Total 0.5 mg/dL (0.2-1.2); Calc. Creatinine Clearance 81 mL/min (70-130); Calcium 6.9 mg/dL (7.8-10.44); Carbon Dioxide 19 mmol/L (23-31); Chloride 112 mmol/L (98-107); Estimated GFR 88; Globulin 1.4 g/dL (2.4-3.5); Glucose 150 mg/dL (83-110); Magnesium 2.1 mg/dL (1.6-2.6); Potassium 3.3 mmol/L (3.5-5.1); Protein, Total 3.5 g/dL (5.8-8.1); Sodium 137 mmol/L (136-145)
[2022-02-03] MEDS: Albumin 25% 25 GM/100 ML BOT IVPB SCH ×3 (09:32→21:08)
[2022-02-03] MEDS: Potassium Chloride 20 MEQ TAB PO SCH (09:32)
[2022-02-03] MEDS ORDERED: Potassium Chloride 20 MEQ TAB PO SCH (17:00)
[2022-02-04] MEDS: Vancomycin HCl 125 MG/5 ML (BATCHED) UDCUP PO SCH ×4 (02:34→21:14)
[2022-02-04] MEDS: metroNIDAZOLE 500 MG in Premix Bag 1 BAG IVPB SCH ×3 (05:16→21:14)
[2022-02-04 05:26] LABS: ALT (SGPT) 7 U/L (8-55); AST (SGOT) 10 U/L (5-34); Albumin 2.6 g/dL (3.4-4.8); Alkaline Phosphatase 34 U/L (40-110); Anion Gap 10 mmol/L (10-20); BUN (Urea Nitrogen) 22 mg/dL (8.4-25.7); Bilirubin, Total 0.7 mg/dL (0.2-1.2); Calc. Creatinine Clearance 102 mL/min (70-130); Calcium 7.4 mg/dL (7.8-10.44); Carbon Dioxide 22 mmol/L (23-31); Chloride 114 mmol/L (98-107); Estimated GFR 96; Glucose 115 mg/dL (83-110); Potassium 3.3 mmol/L (3.5-5.1); Protein, Total 3.6 g/dL (5.8-8.1); Sodium 143 mmol/L (136-145)
[2022-02-04 05:30] LABS: Anion Gap 6 mmol/L (10-20); BUN (Urea Nitrogen) 21 mg/dL (8.4-25.7); Calc. Creatinine Clearance 101 mL/min (70-130); Calcium 7.1 mg/dL (7.8-10.44); Carbon Dioxide 24 mmol/L (23-31); Chloride 115 mmol/L (98-107); Estimated GFR 95; Glucose 117 mg/dL (83-110); Magnesium 2.2 mg/dL (1.6-2.6); Potassium 3.3 mmol/L (3.5-5.1); Sodium 142 mmol/L (136-145)
[2022-02-04 05:45] LABS: Phosphorus 1.9 mg/dL (2.3-4.7)
[2022-02-04] MEDS ORDERED: PHOS-NAK 1 PKT PACK PER TUBE SCH (06:00)
[2022-02-04 06:34] LABS: Hemoglobin 9.3 g/dL (14.0-18.0); Mean Corpuscular HGB CONC 33.2 g/dL (32.0-36.0); Mean Platelet Volume 8.9 fL (7.4-10.4); Platelet Count 76 thou/uL (130-400); RBC Distribution Width 18.4 % (11.5-14.5); Red Blood Cell (RBC) Count 2.58 mill/uL (4.70-6.10); White Blood Cell (WBC) Count 18.2 thou/uL (4.8-10.8)
[2022-02-04 06:35] LABS: Anisocytosis SLIGHT = 6-15 cells (100X) (0-5/hpf); Band 23 % (5-11); Hypochromia SLIGHT = 6-15 cells (100X) (0-5/hpf); Lymphocytes 2 % (21-51); MDiff Complete? YES; Macrocytosis SLIGHT = 6-15 cells (100X) (0-5/hpf); Monocytes 3 % (0-10); Neutrophil 72 % (42-75); Platelet Morphology Comment Appears Decreased; Polychromasia SLIGHT = 2-3 cells (100X) (0-2/hpf)
[2022-02-04] MEDS: Potassium Chloride 40 MEQ in Premix Bag 1 BAG IVPB SCH ×2 (09:12→11:52)
[2022-02-04] MEDS: PHOS-NAK 1 PKT PACK PER TUBE SCH ×2 (09:16→14:31)
[2022-02-04] MEDS: Electrolyte Replacement Protocol FS SCH (09:56)
[2022-02-04] MEDS: Potassium Chloride 20 MEQ in Premix Bag 1 BAG IVPB SCH ×2 (10:29→12:35)
[2022-02-04] MEDS ORDERED: Potassium Phosphate 15 MMOL in Sodium Chloride 0.9% 100 ML IVPB SCH (15:45)
[2022-02-04 18:26] LABS: Potassium 4.1 mmol/L (3.5-5.1)
[2022-02-05] MEDS: Vancomycin HCl 125 MG/5 ML (BATCHED) UDCUP PO SCH ×4 (03:12→21:06)
[2022-02-05 04:31] LABS: #Basophils 0.2 thou/uL (0.0-0.2); #Eosinphils 0.1 thou/uL (0.0-0.7); #Lymphocytes 0.4 thou/uL (1.20-3.40); #Monocytes 1.7 thou/uL (0.11-0.59); %Eosinophils 0.4 % (0.0-10.0); %Lymphocytes 2.6 % (21.0-51.0); %Monocytes 10.6 % (0.0-10.0); %Neutrophils 85.5 % (42.0-75.0); Hemoglobin 9.8 g/dL (14.0-18.0); Mean Corpuscular HGB CONC 31.4 g/dL (32.0-36.0); Mean Corpuscular Hemoglobin 34.5 pg (27.0-31.0); Mean Platelet Volume 9.5 fL (7.4-10.4); Platelet Count 73 thou/uL (130-400); RBC Distribution Width 18.8 % (11.5-14.5); Red Blood Cell (RBC) Count 2.85 mill/uL (4.70-6.10); White Blood Cell (WBC) Count 16.3 thou/uL (4.8-10.8)
[2022-02-05 04:53] LABS: ALT (SGPT) 9 U/L (8-55); AST (SGOT) 14 U/L (5-34); Albumin 2.3 g/dL (3.4-4.8); Alkaline Phosphatase 40 U/L (40-110); Anion Gap 9 mmol/L (10-20); BUN (Urea Nitrogen) 20 mg/dL (8.4-25.7); Bilirubin, Total 0.8 mg/dL (0.2-1.2); Calc. Creatinine Clearance 106 mL/min (70-130); Calcium 7.1 mg/dL (7.8-10.44); Carbon Dioxide 19 mmol/L (23-31); Chloride 115 mmol/L (98-107); Estimated GFR 97; Globulin 1.1 g/dL (2.4-3.5); Glucose 121 mg/dL (83-110); Phosphorus 2.9 mg/dL (2.3-4.7); Potassium 4.1 mmol/L (3.5-5.1); Protein, Total 3.4 g/dL (5.8-8.1); Sodium 139 mmol/L (136-145)
[2022-02-05] MEDS: metroNIDAZOLE 500 MG in Premix Bag 1 BAG IVPB SCH ×4 (05:13→21:07)
[2022-02-05] MEDS ORDERED: Magnesium 2 GM/50 ML(in water) 2 GM in Premix Bag 1 BAG IVPB SCH (08:00)
[2022-02-05] MEDS: Furosemide 20 MG/2 ML VIAL SLOW IVP SCH (10:09)
[2022-02-05] MEDS: Electrolyte Replacement Protocol FS SCH (10:09)
[2022-02-06] MEDS: Vancomycin HCl 125 MG/5 ML (BATCHED) UDCUP PO SCH ×4 (03:54→20:48)
[2022-02-06 04:38] LABS: #Eosinphils 0.1 thou/uL (0.0-0.7); #Lymphocytes 0.7 thou/uL (1.20-3.40); #Monocytes 1.5 thou/uL (0.11-0.59); #Neutrophils 11.1 thou/uL (1.40-6.50); %Basophils 0.1 % (0.0-1.0); %Eosinophils 0.4 % (0.0-10.0); %Lymphocytes 5.2 % (21.0-51.0); %Monocytes 11.4 % (0.0-10.0); %Neutrophils 82.9 % (42.0-75.0); Hemoglobin 9.5 g/dL (14.0-18.0); Mean Corpuscular HGB CONC 31.1 g/dL (32.0-36.0); Mean Corpuscular Hemoglobin 34.1 pg (27.0-31.0); Mean Platelet Volume 9.9 fL (7.4-10.4); Platelet Count 78 thou/uL (130-400); RBC Distribution Width 19.2 % (11.5-14.5); Red Blood Cell (RBC) Count 2.79 mill/uL (4.70-6.10); White Blood Cell (WBC) Count 13.4 thou/uL (4.8-10.8)
[2022-02-06 05:07] LABS: ALT (SGPT) 8 U/L (8-55); AST (SGOT) 15 U/L (5-34); Albumin 1.9 g/dL (3.4-4.8); Alkaline Phosphatase 43 U/L (40-110); Anion Gap 10 mmol/L (10-20); BUN (Urea Nitrogen) 22 mg/dL (8.4-25.7); Bilirubin, Total 0.7 mg/dL (0.2-1.2); Calc. Creatinine Clearance 106 mL/min (70-130); Calcium 7.2 mg/dL (7.8-10.44); Carbon Dioxide 20 mmol/L (23-31); Chloride 110 mmol/L (98-107); Estimated GFR 97; Globulin 1.5 g/dL (2.4-3.5); Glucose 133 mg/dL (83-110); Magnesium 2.1 mg/dL (1.6-2.6); Potassium 3.8 mmol/L (3.5-5.1); Protein, Total 3.4 g/dL (5.8-8.1); Sodium 136 mmol/L (136-145)
[2022-02-06 05:14] LABS: Phosphorus 2.4 mg/dL (2.3-4.7)
[2022-02-06] MEDS: metroNIDAZOLE 500 MG in Premix Bag 1 BAG IVPB SCH ×3 (05:49→20:48)
[2022-02-06] MEDS: Furosemide 20 MG/2 ML VIAL SLOW IVP SCH (11:27)
[2022-02-06] MEDS: Electrolyte Replacement Protocol FS SCH (16:34)
[2022-02-07] MEDS: Vancomycin HCl 125 MG/5 ML (BATCHED) UDCUP PO SCH ×4 (03:23→23:45)
[2022-02-07 05:01] LABS: #Lymphocytes 0.5 thou/uL (1.20-3.40); #Monocytes 1.3 thou/uL (0.11-0.59); #Neutrophils 8.7 thou/uL (1.40-6.50); %Basophils 0.1 % (0.0-1.0); %Eosinophils 0.3 % (0.0-10.0); %Lymphocytes 4.3 % (21.0-51.0); %Monocytes 12.2 % (0.0-10.0); %Neutrophils 83.1 % (42.0-75.0); Hemoglobin 9.4 g/dL (14.0-18.0); Mean Corpuscular HGB CONC 31.4 g/dL (32.0-36.0); Mean Corpuscular Hemoglobin 34.2 pg (27.0-31.0); Mean Platelet Volume 9.5 fL (7.4-10.4); Platelet Count 79 thou/uL (130-400); Red Blood Cell (RBC) Count 2.74 mill/uL (4.70-6.10); White Blood Cell (WBC) Count 10.5 thou/uL (4.8-10.8)
[2022-02-07] MEDS: metroNIDAZOLE 500 MG in Premix Bag 1 BAG IVPB SCH ×3 (05:18→23:50)
[2022-02-07 05:23] LABS: ALT (SGPT) 7 U/L (8-55); AST (SGOT) 13 U/L (5-34); Alkaline Phosphatase 42 U/L (40-110); Anion Gap 9 mmol/L (10-20); BUN (Urea Nitrogen) 22 mg/dL (8.4-25.7); Bilirubin, Total 0.9 mg/dL (0.2-1.2); Calc. Creatinine Clearance 116 mL/min (70-130); Carbon Dioxide 21 mmol/L (23-31); Chloride 110 mmol/L (98-107); Estimated GFR 99; Globulin 1.5 g/dL (2.4-3.5); Glucose 105 mg/dL (83-110); Potassium 3.9 mmol/L (3.5-5.1); Protein, Total 3.5 g/dL (5.8-8.1); Sodium 136 mmol/L (136-145)
[2022-02-07] MEDS: Furosemide 20 MG/2 ML VIAL SLOW IVP SCH (08:46)
[2022-02-07] MEDS: Electrolyte Replacement Protocol FS SCH (22:08)
[2022-02-07] MEDS: Floranex 1 GM Packet PO SCH (23:50)
[2022-02-08] MEDS: Vancomycin HCl 125 MG/5 ML (BATCHED) UDCUP PO SCH ×4 (04:02→21:55)
[2022-02-08] MEDS: metroNIDAZOLE 500 MG in Premix Bag 1 BAG IVPB SCH ×3 (05:41→21:28)
[2022-02-08 06:58] LABS: Hemoglobin 10.2 g/dL (14.0-18.0); Mean Corpuscular HGB CONC 31.3 g/dL (32.0-36.0); Mean Corpuscular Hemoglobin 34.6 pg (27.0-31.0); Mean Platelet Volume 9.5 fL (7.4-10.4); Platelet Count 91 thou/uL (130-400); Red Blood Cell (RBC) Count 2.96 mill/uL (4.70-6.10); White Blood Cell (WBC) Count 8.3 thou/uL (4.8-10.8)
[2022-02-08 06:59] LABS: #Lymphocytes 0.5 thou/uL (1.20-3.40); #Monocytes 1.2 thou/uL (0.11-0.59); #Neutrophils 6.6 thou/uL (1.40-6.50); %Basophils 0.1 % (0.0-1.0); %Eosinophils 0.5 % (0.0-10.0); %Lymphocytes 5.9 % (21.0-51.0); %Monocytes 14.2 % (0.0-10.0); %Neutrophils 79.3 % (42.0-75.0)
[2022-02-08 07:04] LABS: Anion Gap 11 mmol/L (10-20); BUN (Urea Nitrogen) 25 mg/dL (8.4-25.7); Calc. Creatinine Clearance 110 mL/min (70-130); Calcium 7.4 mg/dL (7.8-10.44); Carbon Dioxide 22 mmol/L (23-31); Chloride 108 mmol/L (98-107); Estimated GFR 97; Glucose 108 mg/dL (83-110); Potassium 4.1 mmol/L (3.5-5.1); Sodium 137 mmol/L (136-145)
[2022-02-08 07:58] LABS: MDiff Complete? YES; Platelet Morphology Comment Appears Decreased; Polychromasia SLIGHT = 2-3 cells (100X) (0-2/hpf)
[2022-02-08] MEDS: Electrolyte Replacement Protocol FS SCH (09:28)
[2022-02-08] MEDS: Furosemide 20 MG/2 ML VIAL SLOW IVP SCH (09:28)
[2022-02-08] MEDS: Floranex 1 GM Packet PO SCH ×2 (09:28→21:21)
[2022-02-08] MEDS: Tamsulosin HCl 0.4 MG CAP PO SCH (21:22)
[2022-02-08] MEDS: Cholestyramine/Aspartame 4 gm Packet PO SCH (23:16)
[2022-02-09] MEDS: Vancomycin HCl 125 MG/5 ML (BATCHED) UDCUP PO SCH ×4 (04:27→20:36)
[2022-02-09 04:50] LABS: Anion Gap 9 mmol/L (10-20); BUN (Urea Nitrogen) 25 mg/dL (8.4-25.7); Calc. Creatinine Clearance 120 mL/min (70-130); Calcium 7.2 mg/dL (7.8-10.44); Carbon Dioxide 22 mmol/L (23-31); Chloride 106 mmol/L (98-107); Estimated GFR 99; Glucose 149 mg/dL (83-110); Potassium 3.5 mmol/L (3.5-5.1); Sodium 133 mmol/L (136-145)
[2022-02-09 05:32] LABS: Band 14 % (5-11); Eosinophils 1 % (0-10); Hemoglobin 9.6 g/dL (14.0-18.0); Lymphocytes 7 % (21-51); MDiff Complete? YES; Macrocytosis SLIGHT = 6-15 cells (100X) (0-5/hpf); Mean Corpuscular HGB CONC 31.5 g/dL (32.0-36.0); Mean Corpuscular Hemoglobin 34.5 pg (27.0-31.0); Mean Platelet Volume 9.3 fL (7.4-10.4); Monocytes 15 % (0-10); Neutrophil 63 % (42-75); Platelet Count 86 thou/uL (130-400); Platelet Morphology Comment Appears Decreased; RBC Distribution Width 19.2 % (11.5-14.5); Red Blood Cell (RBC) Count 2.79 mill/uL (4.70-6.10)
[2022-02-09] MEDS: metroNIDAZOLE 500 MG in Premix Bag 1 BAG IVPB SCH ×3 (06:26→22:21)
[2022-02-09] MEDS ORDERED: Potassium Bicarbonate/Cit Ac 20 MEQ TAB PO SCH (08:00)
[2022-02-09] MEDS: Electrolyte Replacement Protocol FS SCH (09:01)
[2022-02-09] MEDS: Furosemide 20 MG/2 ML VIAL SLOW IVP SCH (09:01)
[2022-02-09] MEDS: Floranex 1 GM Packet PO SCH ×2 (09:01→20:36)
[2022-02-09] MEDS: Cholestyramine/Aspartame 4 gm Packet PO SCH ×2 (09:01→22:21)
[2022-02-09] MEDS: Multivits W-Minerals Liquid 15 ML LIQ PER TUBE SCH (11:02)
[2022-02-09 15:18] LABS: SARS-CoV-2 NAA Rapid Test DETECTED (NotDetected)
[2022-02-09] MEDS: Tamsulosin HCl 0.4 MG CAP PO SCH (20:36)
[2022-02-10] MEDS: Vancomycin HCl 125 MG/5 ML (BATCHED) UDCUP PO SCH ×4 (02:23→20:49)
[2022-02-10] MEDS: metroNIDAZOLE 500 MG in Premix Bag 1 BAG IVPB SCH ×3 (05:55→21:22)
[2022-02-10] MEDS: Floranex 1 GM Packet PO SCH ×2 (09:35→09:36)
[2022-02-10] MEDS: Furosemide 20 MG/2 ML VIAL SLOW IVP SCH (09:35)
[2022-02-10] MEDS: Multivits W-Minerals Liquid 15 ML LIQ PER TUBE SCH (09:36)
[2022-02-10] MEDS: Electrolyte Replacement Protocol FS SCH (09:36)
[2022-02-10] MEDS: Cholestyramine/Aspartame 4 gm Packet PO SCH ×2 (10:18→21:22)
[2022-02-10] MEDS: Tamsulosin HCl 0.4 MG CAP PO SCH (20:49)
[2022-02-11] MEDS: Vancomycin HCl 125 MG/5 ML (BATCHED) UDCUP PO SCH ×4 (03:29→21:28)
[2022-02-11] MEDS: metroNIDAZOLE 500 MG in Premix Bag 1 BAG IVPB SCH ×3 (05:18→21:28)
[2022-02-11] MEDS: Floranex 1 GM Packet PO SCH ×2 (10:14→21:27)
[2022-02-11] MEDS: Electrolyte Replacement Protocol FS SCH (10:14)
[2022-02-11] MEDS: Multivits W-Minerals Liquid 15 ML LIQ PER TUBE SCH (10:14)
[2022-02-11] MEDS: Furosemide 20 MG/2 ML VIAL SLOW IVP SCH (10:16)
[2022-02-11] MEDS: Cholestyramine/Aspartame 4 gm Packet PO SCH ×2 (11:28→21:28)
[2022-02-11] MEDS: Tamsulosin HCl 0.4 MG CAP PO SCH (21:28)
[2022-02-11] MEDS: Acetaminophen 325 MG TAB PO PRN (21:29)
[2022-02-12] MEDS: metroNIDAZOLE 500 MG in Premix Bag 1 BAG IVPB SCH ×3 (05:23→21:29)
[2022-02-12] MEDS: Vancomycin HCl 125 MG/5 ML (BATCHED) UDCUP PO SCH ×4 (05:23→21:27)
[2022-02-12 06:59] LABS: Hemoglobin 8.8 g/dL (14.0-18.0); Mean Corpuscular Hemoglobin 34.3 pg (27.0-31.0); Mean Platelet Volume 10.2 fL (7.4-10.4); Platelet Count 53 thou/uL (130-400); RBC Distribution Width 19.7 % (11.5-14.5); Red Blood Cell (RBC) Count 2.58 mill/uL (4.70-6.10); White Blood Cell (WBC) Count 6.9 thou/uL (4.8-10.8)
[2022-02-12 07:05] LABS: Anion Gap 8 mmol/L (10-20); BUN (Urea Nitrogen) 24 mg/dL (8.4-25.7); Calc. Creatinine Clearance 124 mL/min (70-130); Calcium 7.3 mg/dL (7.8-10.44); Carbon Dioxide 25 mmol/L (23-31); Chloride 105 mmol/L (98-107); Estimated GFR 100; Glucose 121 mg/dL (83-110); Potassium 4.1 mmol/L (3.5-5.1); Sodium 134 mmol/L (136-145)
[2022-02-12] MEDS: Floranex 1 GM Packet PO SCH ×2 (09:21→21:27)
[2022-02-12] MEDS: Furosemide 20 MG/2 ML VIAL SLOW IVP SCH (09:21)
[2022-02-12] MEDS: Electrolyte Replacement Protocol FS SCH (10:47)
[2022-02-12] MEDS ORDERED: Electrolyte Replacement Protocol FS PRN (11:00)
[2022-02-12] MEDS: Cholestyramine/Aspartame 4 gm Packet PO SCH ×2 (11:09→21:29)
[2022-02-12] MEDS: Multivits W-Minerals Liquid 15 ML LIQ PER TUBE SCH (12:04)
[2022-02-12] MEDS: Tamsulosin HCl 0.4 MG CAP PO SCH (21:28)
[2022-02-12] MEDS: Acetaminophen 325 MG TAB PO PRN (21:28)
[2022-02-13] MEDS: Vancomycin HCl 125 MG/5 ML (BATCHED) UDCUP PO SCH ×4 (02:17→21:12)
[2022-02-13] MEDS: metroNIDAZOLE 500 MG in Premix Bag 1 BAG IVPB SCH ×3 (05:32→21:12)
[2022-02-13] MEDS: Floranex 1 GM Packet PO SCH ×2 (08:40→21:11)
[2022-02-13] MEDS: Furosemide 20 MG/2 ML VIAL SLOW IVP SCH (08:40)
[2022-02-13] MEDS: Cholestyramine/Aspartame 4 gm Packet PO SCH ×2 (10:26→21:12)
[2022-02-13] MEDS: Multivits W-Minerals Liquid 15 ML LIQ PER TUBE SCH (10:27)
[2022-02-13] MEDS: Tamsulosin HCl 0.4 MG CAP PO SCH (21:11)
[2022-02-14] MEDS: Vancomycin HCl 125 MG/5 ML (BATCHED) UDCUP PO SCH ×4 (03:00→20:42)
[2022-02-14] MEDS: metroNIDAZOLE 500 MG in Premix Bag 1 BAG IVPB SCH ×2 (06:00→13:03)
[2022-02-14] MEDS ORDERED: Rivaroxaban 10 MG TAB ONE (08:14)
[2022-02-14] MEDS: Cholestyramine/Aspartame 4 gm Packet PO SCH ×2 (09:46→20:41)
[2022-02-14] MEDS: Multivits W-Minerals Liquid 15 ML LIQ PER TUBE SCH (09:46)
[2022-02-14] MEDS: Floranex 1 GM Packet PO SCH ×2 (09:46→20:41)
[2022-02-14] MEDS: Furosemide 20 MG/2 ML VIAL SLOW IVP SCH (09:46)
[2022-02-14] MEDS: Acetaminophen 325 MG TAB PO PRN (20:41)
[2022-02-14] MEDS: Tamsulosin HCl 0.4 MG CAP PO SCH (20:41)
[2022-02-15] MEDS: Vancomycin HCl 125 MG/5 ML (BATCHED) UDCUP PO SCH ×4 (02:51→21:55)
[2022-02-15] MEDS: Multivits W-Minerals Liquid 15 ML LIQ PER TUBE SCH (08:14)
[2022-02-15] MEDS: Furosemide 20 MG/2 ML VIAL SLOW IVP SCH (08:14)
[2022-02-15] MEDS: Floranex 1 GM Packet PO SCH ×2 (08:14→21:55)
[2022-02-15] MEDS ORDERED: Pancrelipase DR 12,000 1 CAP FS PRN (09:45)
[2022-02-15] MEDS: Sodium Bicarbonate Tab 325 MG TAB PER TUBE PRN (10:09)
[2022-02-15] MEDS: Cholestyramine/Aspartame 4 gm Packet PO SCH ×2 (10:27→22:54)
[2022-02-15 10:48] LABS: #Lymphocytes 0.5 thou/uL (1.20-3.40); #Monocytes 0.7 thou/uL (0.11-0.59); #Neutrophils 5.8 thou/uL (1.40-6.50); %Basophils 0.1 % (0.0-1.0); %Eosinophils 0.5 % (0.0-10.0); %Lymphocytes 6.4 % (21.0-51.0); Hemoglobin 8.2 g/dL (14.0-18.0); Mean Corpuscular HGB CONC 31.1 g/dL (32.0-36.0); Mean Corpuscular Hemoglobin 33.4 pg (27.0-31.0); Platelet Count 55 10x3/uL (130-400); RBC Distribution Width 19.4 % (11.5-14.5); Red Blood Cell (RBC) Count 2.46 mill/uL (4.70-6.10)
[2022-02-15 11:07] LABS: Anion Gap 8 mmol/L (10-20); BUN (Urea Nitrogen) 23 mg/dL (8.4-25.7); Calc. Creatinine Clearance 140 mL/min (70-130); Calcium 7.3 mg/dL (7.8-10.44); Carbon Dioxide 32 mmol/L (23-31); Chloride 100 mmol/L (98-107); Estimated GFR 102; Glucose 107 mg/dL (83-110); Potassium 3.6 mmol/L (3.5-5.1); Sodium 136 mmol/L (136-145)
[2022-02-15] MEDS: Tamsulosin HCl 0.4 MG CAP PO SCH (21:55)
[2022-02-16] MEDS: Vancomycin HCl 125 MG/5 ML (BATCHED) UDCUP PO SCH ×4 (03:38→21:09)
[2022-02-16] MEDS: Acetaminophen 325 MG TAB PO PRN ×2 (04:12→20:57)
[2022-02-16] MEDS: Furosemide 20 MG/2 ML VIAL SLOW IVP SCH (10:01)
[2022-02-16] MEDS: Floranex 1 GM Packet PO SCH ×2 (10:01→21:09)
[2022-02-16] MEDS: Multivits W-Minerals Liquid 15 ML LIQ PER TUBE SCH (10:03)
[2022-02-16] MEDS: Cholestyramine/Aspartame 4 gm Packet PO SCH ×2 (11:34→21:09)
[2022-02-16] MEDS: Tamsulosin HCl 0.4 MG CAP PO SCH (20:57)
[2022-02-17] MEDS: Acetaminophen 325 MG TAB PO PRN ×2 (02:46→09:43)
[2022-02-17] MEDS: Sodium Bicarbonate Tab 325 MG TAB PER TUBE PRN (02:47)
[2022-02-17] MEDS: Vancomycin HCl 125 MG/5 ML (BATCHED) UDCUP PO SCH ×4 (02:48→22:35)
[2022-02-17 08:29] LABS: #Lymphocytes 0.4 thou/uL (1.20-3.40); #Monocytes 0.4 thou/uL (0.11-0.59); #Neutrophils 6.5 thou/uL (1.40-6.50); %Basophils 0.2 % (0.0-1.0); %Eosinophils 0.2 % (0.0-10.0); %Lymphocytes 5.3 % (21.0-51.0); %Monocytes 4.8 % (0.0-10.0); %Neutrophils 89.5 % (42.0-75.0); Hemoglobin 8.6 g/dL (14.0-18.0); Mean Corpuscular HGB CONC 32.8 g/dL (32.0-36.0); Mean Corpuscular Hemoglobin 35.7 pg (27.0-31.0); Mean Platelet Volume 9.3 fL (7.4-10.4); Platelet Count 68 10x3/uL (130-400); RBC Distribution Width 19.3 % (11.5-14.5); Red Blood Cell (RBC) Count 2.41 mill/uL (4.70-6.10); White Blood Cell (WBC) Count 7.2 10x3/uL (4.8-10.8)
[2022-02-17 08:42] LABS: Anion Gap 12 mmol/L (10-20); BUN (Urea Nitrogen) 22 mg/dL (8.4-25.7); Calc. Creatinine Clearance 144 mL/min (70-130); Calcium 7.4 mg/dL (7.8-10.44); Carbon Dioxide 26 mmol/L (23-31); Chloride 99 mmol/L (98-107); Estimated GFR 104; Glucose 141 mg/dL (83-110); Potassium 3.6 mmol/L (3.5-5.1); Sodium 133 mmol/L (136-145)
[2022-02-17] MEDS ORDERED: Furosemide 40 MG TAB PO SCH (09:30)
[2022-02-17] MEDS: Multivits W-Minerals Liquid 15 ML LIQ PER TUBE SCH (09:43)
[2022-02-17] MEDS: Floranex 1 GM Packet PO SCH ×2 (09:44→22:34)
[2022-02-17] MEDS: Cholestyramine/Aspartame 4 gm Packet PO SCH ×2 (11:20→22:35)
[2022-02-17] MEDS ORDERED: Furosemide 40 MG/4 ML VIAL SLOW IVP SCH (13:30)
[2022-02-17] MEDS ORDERED: Morphine 4 MG/ML VIAL ONE (17:19)
[2022-02-17] MEDS: Tamsulosin HCl 0.4 MG CAP PO SCH (22:35)
[2022-02-18] MEDS: Vancomycin HCl 125 MG/5 ML (BATCHED) UDCUP PO SCH ×4 (03:41→20:13)
[2022-02-18] MEDS ORDERED: Furosemide 40 MG TAB PO SCH (07:30)
[2022-02-18] MEDS ORDERED: GASTROGRAFIN 30 ML BOT ONE (09:40)
[2022-02-18] MEDS ORDERED: Iopamidol-370 76% 500 ML 1 ML ONE (09:40)
[2022-02-18] MEDS: Multivits W-Minerals Liquid 15 ML LIQ PER TUBE SCH (10:09)
[2022-02-18] MEDS: Floranex 1 GM Packet PO SCH ×2 (10:09→20:12)
[2022-02-18] MEDS: Cholestyramine/Aspartame 4 gm Packet PO SCH ×2 (10:10→20:13)
[2022-02-18] MEDS ORDERED: Furosemide 40 MG/4 ML VIAL SLOW IVP SCH ×2 (12:30→23:30)
[2022-02-18] MEDS ORDERED: Acetaminophen 650 MG Suppository PR PRN (19:36)
[2022-02-18] MEDS: Tamsulosin HCl 0.4 MG CAP PO SCH (20:13)
[2022-02-18] MEDS: Ketorolac Tromethamine 30 MG/ML VIAL IVP PRN (20:25)
[2022-02-18] MEDS ORDERED: Benzonatate 100 MG CAP PO PRN (22:29)
[2022-02-18] MEDS ORDERED: Furosemide 20 MG/2 ML VIAL SLOW IVP SCH (23:30)
[2022-02-19] MEDS: Albuterol 200 PUFF (6.7GM INHALER) INH PRN (00:31)
[2022-02-19] MEDS: Vancomycin HCl 125 MG/5 ML (BATCHED) UDCUP PO SCH ×4 (04:17→20:43)
[2022-02-19] MEDS: Ketorolac Tromethamine 30 MG/ML VIAL IVP PRN ×2 (05:07→22:14)
[2022-02-19] MEDS: Floranex 1 GM Packet PO SCH ×2 (08:27→20:43)
[2022-02-19] MEDS: Multivits W-Minerals Liquid 15 ML LIQ PER TUBE SCH (08:28)
[2022-02-19] MEDS: Furosemide 40 MG/4 ML VIAL SLOW IVP SCH (08:34)
[2022-02-19] MEDS ORDERED: methylPREDNISolone Sod Succ 40 MG VIAL IVP SCH (09:00)
[2022-02-19] MEDS: Albumin 25% 25 GM/100 ML BOT IVPB SCH ×3 (11:08→22:14)
[2022-02-19] MEDS: Cholestyramine/Aspartame 4 gm Packet PO SCH ×2 (11:38→20:43)
[2022-02-19] MEDS ORDERED: methylPREDNISolone Sod Succ/PF 125 MG/2 ML VIAL IVP SCH (12:00)
[2022-02-19] MEDS: methylPREDNISolone Sod Succ 40 MG VIAL IVP SCH ×2 (13:59→18:54)
[2022-02-19] MEDS: Tamsulosin HCl 0.4 MG CAP PO SCH (20:43)
[2022-02-20] MEDS: methylPREDNISolone Sod Succ 40 MG VIAL IVP SCH ×2 (00:53→05:21)
[2022-02-20] MEDS: Vancomycin HCl 125 MG/5 ML (BATCHED) UDCUP PO SCH ×3 (03:00→16:19)
[2022-02-20] MEDS: Albumin 25% 25 GM/100 ML BOT IVPB SCH ×3 (03:59→18:18)
[2022-02-20] MEDS: Albuterol 200 PUFF (6.7GM INHALER) INH PRN (04:11)
[2022-02-20] MEDS ORDERED: Scopolamine 1.5 mg/72 hour Patch TD SCH (05:00)
[2022-02-20 06:51] LABS: #Lymphocytes 0.2 thou/uL (1.20-3.40); #Monocytes 0.3 thou/uL (0.11-0.59); #Neutrophils 8.8 thou/uL (1.40-6.50); %Basophils 0.3 % (0.0-1.0); %Eosinophils 0.1 % (0.0-10.0); %Lymphocytes 2.1 % (21.0-51.0); %Monocytes 2.9 % (0.0-10.0); %Neutrophils 94.7 % (42.0-75.0); Hemoglobin 6.5 g/dL (14.0-18.0); Mean Corpuscular HGB CONC 30.2 g/dL (32.0-36.0); Mean Corpuscular Hemoglobin 33.1 pg (27.0-31.0); Mean Platelet Volume 9.8 fL (7.4-10.4); Platelet Count 83 10x3/uL (130-400); Red Blood Cell (RBC) Count 1.96 mill/uL (4.70-6.10); White Blood Cell (WBC) Count 9.3 10x3/uL (4.8-10.8)
[2022-02-20 08:06] LABS: Anion Gap 17 mmol/L (10-20); BUN (Urea Nitrogen) 18 mg/dL (8.4-25.7); Calc. Creatinine Clearance 141 mL/min (70-130); Calcium 8.3 mg/dL (7.8-10.44); Carbon Dioxide 31 mmol/L (23-31); Chloride 96 mmol/L (98-107); Estimated GFR 104; Glucose 87 mg/dL (83-110); Potassium 3.2 mmol/L (3.5-5.1); Sodium 141 mmol/L (136-145)
[2022-02-20] MEDS: guaiFENesin ER 600 MG TAB PO SCH ×2 (09:12→20:12)
[2022-02-20] MEDS: Polyethylene Glycol 3350 17 GM Packet PO SCH (09:12)
[2022-02-20] MEDS: Multivits W-Minerals Liquid 15 ML LIQ PER TUBE SCH (09:12)
[2022-02-20] MEDS: Floranex 1 GM Packet PO SCH ×2 (09:12→20:12)
[2022-02-20] MEDS: Cholestyramine/Aspartame 4 gm Packet PO SCH ×2 (09:13→20:13)
[2022-02-20] MEDS: Furosemide 40 MG/4 ML VIAL SLOW IVP SCH ×2 (09:21→14:21)
[2022-02-20] MEDS ORDERED: Pantoprazole 40 MG VIAL IVP SCH (11:30)
[2022-02-20 11:43] VITALS: BMI 26.2
[2022-02-20] MEDS ORDERED: Amino Acids 4.25 %/Dextrose 5% 2,000 ML BAG IV SCH (13:00)
[2022-02-20] MEDS: Amino Acids 4.25 %/Dextrose 5% 1,000 ML IV SCH (14:38)
[2022-02-20] MEDS ORDERED: Potassium Chloride 20 MEQ in Premix Bag 1 BAG IVPB SCH (15:00)
[2022-02-20] MEDS: Potassium Chloride 20 MEQ in Premix Bag 1 BAG IVPB SCH ×2 (19:37→21:15)
[2022-02-20] MEDS: Pantoprazole 40 MG VIAL IVP SCH (20:10)
[2022-02-20] MEDS: Tamsulosin HCl 0.4 MG CAP PO SCH (20:12)
[2022-02-20 20:58] LABS: Hemoglobin 7.7 g/dL (14.0-18.0)
[2022-02-20] MEDS ORDERED: methylPREDNISolone Sod Succ 40 MG VIAL IVP SCH (21:00)
[2022-02-21] MEDS: Vancomycin HCl 125 MG/5 ML (BATCHED) UDCUP PO SCH ×5 (01:18→22:47)
[2022-02-21] MEDS: Albumin 25% 25 GM/100 ML BOT IVPB SCH ×4 (01:24→18:08)
[2022-02-21] MEDS: Furosemide 40 MG/4 ML VIAL SLOW IVP SCH ×2 (05:29→14:47)
[2022-02-21] MEDS: Amino Acids 4.25 %/Dextrose 5% 1,000 ML IV SCH ×2 (05:39→21:42)
[2022-02-21 06:33] LABS: Reticulocyte Count 0.9 % (0.5-1.5)
[2022-02-21 06:38] LABS: #Lymphocytes 0.2 thou/uL (1.20-3.40); #Monocytes 0.3 thou/uL (0.11-0.59); #Neutrophils 9.2 thou/uL (1.40-6.50); %Basophils 0.2 % (0.0-1.0); %Eosinophils 0.1 % (0.0-10.0); %Lymphocytes 1.7 % (21.0-51.0); %Monocytes 3.2 % (0.0-10.0); %Neutrophils 94.8 % (42.0-75.0); Hemoglobin 7.8 g/dL (14.0-18.0); Mean Corpuscular HGB CONC 32.3 g/dL (32.0-36.0); Mean Corpuscular Hemoglobin 34.5 pg (27.0-31.0); Mean Platelet Volume 9.7 fL (7.4-10.4); Platelet Count 78 10x3/uL (130-400); RBC Distribution Width 17.8 % (11.5-14.5); Red Blood Cell (RBC) Count 2.26 mill/uL (4.70-6.10); White Blood Cell (WBC) Count 9.7 10x3/uL (4.8-10.8)
[2022-02-21 06:44] LABS: Phosphorus 2.7 mg/dL (2.3-4.7)
[2022-02-21 06:48] LABS: Anion Gap 14 mmol/L (10-20); BUN (Urea Nitrogen) 27 mg/dL (8.4-25.7); Calc. Creatinine Clearance 123 mL/min (70-130); Calcium 8.3 mg/dL (7.8-10.44); Carbon Dioxide 34 mmol/L (23-31); Chloride 95 mmol/L (98-107); Estimated GFR 100; Glucose 173 mg/dL (83-110); Iron 35 ug/dL (65-175); Magnesium 1.7 mg/dL (1.6-2.6); Potassium 3.3 mmol/L (3.5-5.1); Sodium 140 mmol/L (136-145)
[2022-02-21] MEDS ORDERED: Magnesium 2 GM/50 ML(in water) 2 GM in Premix Bag 1 BAG IVPB SCH (08:45)
[2022-02-21] MEDS ORDERED: methylPREDNISolone Sod Succ 40 MG VIAL IVP SCH (09:00)
[2022-02-21] MEDS: Pantoprazole 40 MG VIAL IVP SCH ×2 (09:35→21:42)
[2022-02-21] MEDS: Floranex 1 GM Packet PO SCH ×2 (09:37→21:43)
[2022-02-21] MEDS: Cholestyramine/Aspartame 4 gm Packet PO SCH ×2 (09:38→22:47)
[2022-02-21] MEDS: Polyethylene Glycol 3350 17 GM Packet PO SCH (09:38)
[2022-02-21] MEDS: guaiFENesin ER 600 MG TAB PO SCH ×2 (09:38→21:43)
[2022-02-21] MEDS: Multivits W-Minerals Liquid 15 ML LIQ PER TUBE SCH (09:38)
[2022-02-21] MEDS ORDERED: Furosemide 20 MG/2 ML VIAL SLOW IVP SCH (11:15)
[2022-02-21] MEDS ORDERED: Morphine 4 MG/ML VIAL SLOW IVP SCH (11:30)
[2022-02-21 12:12] VITALS: BP 123/62
[2022-02-21] MEDS ORDERED: Potassium Chloride 20 MEQ in Premix Bag 1 BAG IVPB SCH (13:00)
[2022-02-21] MEDS ORDERED: Morphine 2 MG/ML VIAL SLOW IVP PRN (14:39)
[2022-02-21] MEDS ORDERED: Potassium Chloride 20 MEQ TAB PO SCH (14:45)
[2022-02-21] MEDS: methylPREDNISolone Sod Succ 40 MG VIAL IVP SCH ×2 (14:47→21:43)
[2022-02-21] MEDS: Morphine 4 MG/ML VIAL SLOW IVP PRN (18:08)
[2022-02-21 18:54] LABS: Potassium 2.8 mmol/L (3.5-5.1)
[2022-02-21] MEDS: Tamsulosin HCl 0.4 MG CAP PO SCH (21:43)
[2022-02-21] MEDS: Potassium Bicarbonate/Cit Ac 20 MEQ TAB PO SCH (21:43)
[2022-02-21] MEDS: HumaLOG 300 UNITS/3 ML VIAL SC PRN (22:07)
[2022-02-22] MEDS: Vancomycin HCl 125 MG/5 ML (BATCHED) UDCUP PO SCH ×3 (02:10→14:29)
[2022-02-22] MEDS: Potassium Bicarbonate/Cit Ac 20 MEQ TAB PO SCH (02:10)
[2022-02-22] MEDS: methylPREDNISolone Sod Succ 40 MG VIAL IVP SCH ×2 (05:43→14:18)
[2022-02-22] MEDS: Furosemide 40 MG/4 ML VIAL SLOW IVP SCH ×2 (05:43→14:18)
[2022-02-22] MEDS: HumaLOG 300 UNITS/3 ML VIAL SC PRN (05:43)
[2022-02-22 07:36] LABS: Magnesium 1.7 mg/dL (1.6-2.6); Potassium 3.7 mmol/L (3.5-5.1)
[2022-02-22] MEDS ORDERED: Magnesium 2 GM/50 ML(in water) 2 GM in Premix Bag 1 BAG IVPB SCH (08:45)
[2022-02-22] MEDS: guaiFENesin ER 600 MG TAB PO SCH (08:46)
[2022-02-22] MEDS: Floranex 1 GM Packet PO SCH (08:46)
[2022-02-22] MEDS: Multivits W-Minerals Liquid 15 ML LIQ PER TUBE SCH (08:46)
[2022-02-22] MEDS: Cholestyramine/Aspartame 4 gm Packet PO SCH (08:46)
[2022-02-22] MEDS: Polyethylene Glycol 3350 17 GM Packet PO SCH (08:46)
[2022-02-22] MEDS: Morphine 4 MG/ML VIAL SLOW IVP PRN (08:48)
[2022-02-22] MEDS: Pantoprazole 40 MG VIAL IVP SCH (08:48)
[2022-02-22 11:01] VITALS: TEMP 96.8
[2022-02-22] MEDS ORDERED: Morphine 4 MG/ML VIAL SLOW IVP PRN (15:51)
[2022-02-22] MEDS ORDERED: Scopolamine 1.5 mg/72 hour Patch TD SCH (16:00)
== END 2022-02-22 16:24 | disposition hospice, inpatient (51) | DRG 871 ==
LOC: ERS 10:21 → 2NO 13:36 → MSONC 02-09 13:59 → T4-B 02-09 18:23 → IMCU/EMU 02-21 15:27
PROVIDERS: ADMIT Internal Medicine; ATTEND Family Medicine
PROC: 3E03329 Introduction of Other Anti-infective into Peripheral Vein, Percutaneous Approach (ICD-10-PCS; principal; 2022-01-24)
PROC: 0D2DXUZ Change Feeding Device in Lower Intestinal Tract, External Approach (ICD-10-PCS; 2022-01-25)
PROC: 0D2DXUZ Change Feeding Device in Lower Intestinal Tract, External Approach (ICD-10-PCS; 2022-01-31)
PROC: 30233N1 Transfusion of Nonautologous Red Blood Cells into Peripheral Vein, Percutaneous Approach (ICD-10-PCS; 2022-02-20)
PROC: 0D2DXUZ Change Feeding Device in Lower Intestinal Tract, External Approach (ICD-10-PCS; 2022-02-21)
DX: A41.9 Sepsis, unspecified organism (principal); D61.810 Antineoplastic chemotherapy induced pancytopenia; U07.1 COVID-19; E43 Unspecified severe protein-calorie malnutrition; J96.01 Acute respiratory failure with hypoxia; J18.9 Pneumonia, unspecified organism; E87.20 Acidosis, unspecified; K51.00 Ulcerative (chronic) pancolitis without complications; D84.9 Immunodeficiency, unspecified; C15.5 Malignant neoplasm of lower third of esophagus; A04.72 Enterocolitis due to Clostridium difficile, not specified as recurrent; I31.39 Other pericardial effusion (noninflammatory); K94.13 Enterostomy malfunction; I50.32 Chronic diastolic (congestive) heart failure; K56.7 Ileus, unspecified; R64 Cachexia; R65.20 Severe sepsis without septic shock; Z66 Do not resuscitate; Z20.822 Contact with and (suspected) exposure to COVID-19; Y83.8 Other surgical procedures as the cause of abnormal reaction of the patient, or of later complication, without mention of misadventure at the time of the procedure; E11.9 Type 2 diabetes mellitus without complications; R33.9 Retention of urine, unspecified; D69.6 Thrombocytopenia, unspecified; R13.12 Dysphagia, oropharyngeal phase; E88.09 Other disorders of plasma-protein metabolism, not elsewhere classified; I11.0 Hypertensive heart disease with heart failure; N40.0 Benign prostatic hyperplasia without lower urinary tract symptoms; Z68.24 Body mass index [BMI] 24.0-24.9, adult
CPT/HCPCS: 36415; 36416; 36430; 49451; 71045; 74018; 74177; 80048; 80053; 80202; 82248; 82728; 83540; 83605; 83615; 83630; 83735; 83880; 84100; 84145; 84550; 85025; 85027; 85046; 86850; 86900; 86901; 87040; 87070; 87205; 87324; 87328; 87329; 87449; 87493; 87505; 87804; 87811; 93005; 93306; 94640; 94660; 94760; 96374; 97139; C9113; J1170; J1650; J1815; J1885; J1940; J2250; J2270; J2543; J2920; J3010; J3370; J3475; J3480; J3490; J7050; J7070; J7120; J7620; P9016; P9047; Q9963; Q9967; U0002; U0003; U0005

== ENCOUNTER 2022-02-22 16:32 | Inpatient (IN) | payer OTHER ==
[2022-02-22 16:50] VITALS: BMI 23.9
[2022-02-22] MEDS ORDERED: Haloperidol Lactate 5 MG/ML VIAL SLOW IVP PRN (17:15)
[2022-02-22] MEDS ORDERED: diphenhydrAMINE 50 MG/ML VIAL IVP PRN (17:15)
[2022-02-22] MEDS ORDERED: Scopolamine 1.5 mg/72 hour Patch TOP PRN (17:15)
[2022-02-22] MEDS ORDERED: Ondansetron PF 4 MG/2 ML Vial IVP PRN (17:15)
[2022-02-22] MEDS ORDERED: Acetaminophen 650 MG Suppository PR PRN (17:15)
[2022-02-22] MEDS ORDERED: Morphine 2 MG/ML VIAL SLOW IVP PRN (17:26)
[2022-02-22] MEDS: Morphine 2 MG/ML VIAL SLOW IVP SCH (18:42)
[2022-02-22] MEDS: Morphine 4 MG/ML VIAL SLOW IVP SCH (23:39)
[2022-02-23] MEDS: Morphine 2 MG/ML VIAL SLOW IVP SCH (00:03)
[2022-02-23] MEDS: Morphine 4 MG/ML VIAL SLOW IVP SCH ×4 (05:30→20:53)
[2022-02-23] MEDS: methylPREDNISolone Sod Succ 40 MG VIAL IVP SCH (08:09)
[2022-02-23] MEDS ORDERED: Furosemide 40 MG/4 ML VIAL SLOW IVP SCH (09:00)
[2022-02-23] MEDS: Morphine 4 MG/ML VIAL SLOW IVP PRN ×3 (09:56→13:03)
[2022-02-23] MEDS ORDERED: Bisacodyl 10 MG SUPP PR PRN (11:53)
[2022-02-23] MEDS: Lorazepam 2 MG/ML VIAL SLOW IVP PRN (13:03)
[2022-02-23] MEDS ORDERED: Morphine 4 MG/ML VIAL SLOW IVP PRN (13:20)
[2022-02-23] MEDS: Lorazepam 2 MG/ML VIAL SLOW IVP SCH (15:18)
[2022-02-23 18:17] LABS: Bacteria/HPF 4+ HPF (None Seen); Bilirubin Negative (Negative); Blood, Urine 3+ (Negative); CAUTI Indications for Culture Acute Hematuria; Glucose, Urine (Dipstick) Normal (Negative); Ketone, Urine Negative (Negative); Leukocyte 500 Leu/uL (Negative); Nitrite Negative (Negative); Protein, Urine (Dipstick) 200 mg/dL (Neg-Trace); RBC/HPF 0-3 HPF (0-3); Specific Gravity, Urine 1.011 (1.002-1.036); Squamous Epithelial None Seen HPF (0-3); Triple Phosphate Crystal 2+ HPF (None Seen); Urobilinogen Normal mg/dL (Less than 2); pH, Urine 8.5 (5.0-9.0)
[2022-02-23 18:18] LABS: Clarity Turbid (Clear)
[2022-02-23 18:19] LABS: Urine Culture Reflex Yes Yes
[2022-02-24] MEDS: Morphine 4 MG/ML VIAL SLOW IVP SCH ×6 (01:14→20:28)
[2022-02-24] MEDS: Lorazepam 2 MG/ML VIAL SLOW IVP SCH ×3 (01:15→15:37)
[2022-02-24] MEDS: methylPREDNISolone Sod Succ 40 MG VIAL IVP SCH (08:18)
[2022-02-25] MEDS: Morphine 4 MG/ML VIAL SLOW IVP SCH ×6 (00:37→20:34)
[2022-02-25] MEDS: Lorazepam 2 MG/ML VIAL SLOW IVP SCH ×4 (02:49→20:29)
[2022-02-25 08:55] VITALS: TEMP 98.2
[2022-02-25] MEDS: Lorazepam 2 MG/ML VIAL SLOW IVP PRN (10:37)
[2022-02-25] MEDS ORDERED: Scopolamine 1.5 mg/72 hour Patch TOP SCH (13:15)
[2022-02-25 19:47] VITALS: BP 128/62
== END 2022-02-26 00:25 | disposition expired | DRG 951 ==
LOC: IMCU/EMU 16:32 → T4-A 19:23
PROVIDERS: ADMIT Family Medicine; ATTEND Family Medicine
PROC: 3E03329 Introduction of Other Anti-infective into Peripheral Vein, Percutaneous Approach (ICD-10-PCS; principal; 2022-02-22)
PROC: 5A09357 Assistance with Respiratory Ventilation, Less than 24 Consecutive Hours, Continuous Positive Airway Pressure (ICD-10-PCS; 2022-02-22)
DX: Z51.5 Encounter for palliative care (principal); Z66 Do not resuscitate; J80 Acute respiratory distress syndrome; J69.0 Pneumonitis due to inhalation of food and vomit; A41.9 Sepsis, unspecified organism; J18.9 Pneumonia, unspecified organism; R64 Cachexia; C15.9 Malignant neoplasm of esophagus, unspecified; R31.9 Hematuria, unspecified; E11.9 Type 2 diabetes mellitus without complications; I10 Essential (primary) hypertension; E78.5 Hyperlipidemia, unspecified; K21.9 Gastro-esophageal reflux disease without esophagitis; N40.0 Benign prostatic hyperplasia without lower urinary tract symptoms; G47.33 Obstructive sleep apnea (adult) (pediatric); Z68.23 Body mass index [BMI] 23.0-23.9, adult
CPT/HCPCS: 81001; 87086; J0744; J1940; J2060; J2270; J2920; J7620